=== PATIENT | male | born 1965 | race Caucasian/White ===

== ENCOUNTER 2023-09-21 18:27 | Inpatient (IN) | payer BC, SELFPAY ==
[2023-09-21] VITALS (31 sets, daily range): BP systolic 85–96; BP diastolic 65–79; PULSE 89–112; RESP 17–42; O2SAT 86–100
--- NOTE | ~2023-09-21 | XR_ITS ---
XR chest 1V portable DATE: 09/23/2023 08:22 INDICATION: Respiratory failure TECHNIQUE: Portable AP chest on 09/23/2023 at 0814 hours COMPARISON: 09/22/2023 portable AP chest at 1316 hours FINDINGS: There is persistent right upper lobe prominent consolidation and patchy bilateral lower kellie g infiltrates, with little interval change since 09/22/2023. There is interval mild pulmonary vascular prominence suggesting pulmonary vascular congestion. Heart size is not optimally evaluated on AP projection because of magnification. No pleural effusion or pneumothorax is evident. IMPRESSION: Persistent prominent right upper lobe consolidation and patchy bilateral lower lung zone infiltrates, relatively stable since 09/22/2023 Interval mild pulmonary vascular congestion since 09/22/2019 Reviewed, dictated and finalized at location [facility] IMPRESSION: Persistent prominent right upper lobe consolidation and patchy bila teral lower lung zone infiltrates, relatively stable since 09/22/2023 Interval mild pulmonary vascular congestion since 09/22/2019
--- NOTE | ~2023-09-21 | US_ITS ---
Renal-Bladder ultrasound Clinical History: Acute kidney injury Technique: Real-time sonographic imaging of the kidneys and urinary bladder was performed. Findings: The right kidney measures 13.6 cm in length and the left kidney measures 11.8 cm. There is no hydronephrosis or renal calculus identified. Renal cortical echogenicity is within normal limits. No renal mass lesion is identified. The urinary bladder is moderately distended at the time of this exam. No intraluminal echoes are iden tified. No abnormal wall thickening is seen. Impression: Unremarkable ultrasound of the kidneys and urinary bladder. Reviewed, dictated and finalized at location M. [facility] MACHINING SYSTEM MACHINIST Impression: Unremarkable ultrasound of the kidneys and urinary bladder.
--- NOTE | ~2023-09-21 | CT_ITS ---
EXAMINATION: CTA chest PE protocol DATE: 09/21/2023 18:54 INDICATION: Hypoxia. Tachycardia. Back pain. TECHNIQUE: Computed tomography angiography (CTA) of the chest was performed with 100 mL Omnipaque-350 intravenous contrast timed to evaluate the pulmonary arteries. Coronal maximum intensity projection 3D-reconstructions were created by the technologist. Automated exposure control and iterative reconst ruction technique were employed. The dose-length product was 654.45 mGy-cm. COMPARISON: None. FINDINGS: There are extensive airspace opacities with air bronchograms in right upper lobe. There are patchy airspace and groundglass opacities in the other lobes. No pleural effusion. The heart size is normal. No pericardial effusion. There is no pulmonary embolus. There is severe thoracic spondylosis . IMPRESSION: 1. Widespread pneumonia, worst in right upper lobe. 2. No pulmonary embolus. Reviewed, dictated and finalized at location E. ICAL SCIENCE LIAISON
--- NOTE | ~2023-09-21 | XR_ITS ---
XR chest 1V portable DATE: 09/22/2023 13:23 INDICATION: Pneumonia TECHNIQUE: Portable upright AP chest on 09/22/2023 at 1316 hours COMPARISON: 09/21/2023 CTA chest FINDINGS: There is prominent consolidation of the right upper lobe and patchy consolidating infiltrat es scattered in both lower lung zones as well. Normal heart size. No hilar or mediastinal enlargement is evident. No pleural effusion or pneumothora x is detected. IMPRESSION: Prominent right upper lobe consolidation and patchy consolidating infiltrates of both low er lungs Reviewed, dictated and finalized at location B. TING DETAILER IMPRESSION: Prominent right upper lobe consolidation and patchy consolidating i nfiltrates of both lower lungs
--- NOTE | 2023-09-21 18:32 | ECG_ITS ---
Measurements Intervals [place] Rate: 110 P: 35 MD: 159 QRS: 27 QRSD: 93 T: 39 QT: 274 QTc: 371 Interpretive Statements SINUS TACHYCARDIA ABNORMAL ECG NO PREVIOUS ECG AVAILABLE FOR COMPARISON Electronically Signed On 09-21-2023 19:34:11 ACTIVE DIRECTORY ADMINISTRATOR by Ned Fields D.O.
--- NOTE | 2023-09-21 18:33 | ED.CHESTPAIN ---
HPI - Chest Pain General Chief Complaint: Chest Pain Stated Complaint: STEMI, SOB, SYNCOPE Time Seen by Provider: 09/21/23 18:30 History of Present Illness HPI narrative: 58-year-old male presenting as a STEMI alert. Patient states that he has been passing out every time he tries to stand. States that he has been crawling around because of this. He has had pleuritic right-sided upper back pain today. Complains of some right calf pain. No leg swelling. Denies history of prior clots. He has also been feeling short of breath today. Further history is limited secondary to acuity of condition. Related Data Home Medications Medication Instructions Recorded Confirmed amitriptyline 100 mg tablet 100 mg PO HS 09/22/23 09/22/23 amlodipine 10 mg tablet 10 mg PO DAILY 09/22/23 09/22/23 polyethylene glycol 3350 17 gram 17 g PO HS 09/22/23 09/22/23 oral powder packet (Miralax) Allergies Allergy/AdvReac Type Severity Reaction Status Date / Time No Known Allergies Allergy Verified 09/21/23 19:05 Review of Systems Review of Systems: ROS unobtainable: Yes unobtainable due to medical condition [facility] Past Medical History Medical History Hypertension Family History Family History Father Parkinson disease Social History Social History (Updated 09/22/23 @ 15:26 by González Hernandez MD) Social History: Patient smoked a long time ago and has not smoked for last 10 years. He does ingest marijuana edibles. Takes alcohol occasionally denies any other drug usage at this time. Denies any history of IV drug use Smoking status: Never smoker Second hand tobacco smoke exposure: No Alcohol intake: never Substance use: never Do You Feel Safe in your Home?: Yes Lack of Transportation: No Lack of Food: Never True Current Housing: I Have Housing Concerned About Future Housing: No Difficulty Paying Gas/Electric Bills: No Difficulty Paying for Meds: No Currently Unemployed: No Education: Master's Degree or Higher Difficulty w/ Childcare or Family Care: No Spiritual care concerns: No Exam Narrative: GENERAL: Pale, uncomfortable appearing, pleasant cooperative HEAD: Normocephalic, atraumatic. EYES: PERRLA and EOMI. ENT: Mucous membranes moist. NECK: Supple. CHEST: Clear to auscultation. Tachypneic, hypoxic on room air HEART: Tachycardic, regular rhythm ABDOMEN: Soft, nontender, nondistended EXTREMITIES: No edema. SKIN: Warm, dry, no rash. NEURO: No focal deficits. Alert and oriented x3. PSYCH: Normal mood and affect. Course Vital Signs Vital signs: Vital Signs Pulse Rate 110 H 09/21/23 18:20 Respiratory Rate 30 H 09/21/23 18:20 Blood Pressure 85/72 L 09/21/23 18:20 Pulse Oximetry 86 L 09/21/23 18:20 Oxygen Delivery Room Air 09/21/23 18:20 Temperature 99.3 F 09/22/23 19:00 Pulse Rate 105 H 09/22/23 19:00 Respiratory Rate 27 H 09/22/23 19:00 Blood Pressure 107/82 09/22/23 19:00 Pulse Oximetry 100 09/22/23 19:00 Oxygen Delivery High Flow Nasal Cannula 09/22/23 17:00 Oxygen Flow Rate 15 09/22/23 17:00 Fraction of Inspired Oxygen 60 09/22/23 12:00 MDM - Chest Pain MDM Narrative Medical decision making narrative: 58-year-old male presenting with shortness of breath, recurrent syncope, pleuritic back pain. Patient was originally a STEMI alert. EKG here per my interpretation shows sinus tachycardia, slight elevations in V1, V2, no reciprocal changes. Reviewed the EKG with Cardiology as well as the pre-hospital EKG. Do not feel that this represents a STEMI at this time, code STEMI was canceled. Patient is tachycardic, tachypneic, hypotensive, hypoxic on room air. Patient taken straight to CT scan at to [facility] for PE. CTA chest shows no evidence of pulmonary embolus but he does have extensive multifocal pneumonia, worse on the right. Broad-spect
--- NOTE | 2023-09-21 18:38 | PC.NURSE ---
1816 Declared STEMI O/H 1818 [facility] Sent [address] Valdovinos notified 1834 STEMI Cancelled on [facility] was not notified for standby.
[2023-09-21 18:39] LABS: Hematocrit 35.6 % (42.0-52.0); Hemoglobin 11.8 g/dL (14.0-18.0); Mean Corpuscular HGB Conc 33.1 g/dl (32-36); Mean Corpuscular Hemoglobin 29.6 pg (26-34); Mean Corpuscular Volume 89.4 fl (80-100); Mean Platelet Volume 10.2 fl (7.4-10.4); Platelet Count Result 251 k/mm3 (150-375); Red Blood Count 3.98 M/mm3 (4.6-6.20); Red Cell Distribution Width 14.6 % (11.5-14.5); White Blood Count 13.5 K/mm3 (4.5-10.0)
[2023-09-21 18:41] LABS: Alveolar/Arterial O2 Gradient 623.3 mmHg; Carboxyhemoglobin 0.2 % THb (0-2.0); Fractional Inspired Oxygen 100 %; HCO3 ABG 20.9 mEq/l (22.0-26.0); Methemoglobin ABG 0.2 %THb (0-1.5); Oxygen Content ABG 15.8 %vol (16.0-22.0); Oxygen Saturation ABG 92.4 % (95.0-100.0); Oxyhemoglobin 89.9 % THb (90.0-100.0); PCO2 ABG 30.3 mmHg (35.0-45.0); PO2 ABG 59.4 mmHg (80.0-100.0); PO2 FiO2 Ratio Arterial Blood 0.59 %; Reduced Hemoglobin 9.7 %THb (0-5.0); Total Hemoglobin 12.5 g/dL (12.0-18.0); pH ABG 7.457 (7.350-7.450)
[2023-09-21 18:42] LABS: Site Drawn RIGHT BRACHIAL
[2023-09-21 18:43] LABS: Device NON-REBREATHER MASK
[2023-09-21 18:52] LABS: Alanine Aminotransferase 195 U/L (6-50); Albumin Level 3.5 g/dL (3.5-5.1); Alkaline Phosphatase 94 U/L (38-126); Anion Gap 14 mmol/L (8-16); Aspartate Amino Transferase 181 U/L (17-59); Bilirubin,Total 0.5 mg/dL (0.2-1.3); Blood Urea Nitrogen 36 mg/dL (9-20); Calcium 8.8 mg/dL (8.4-10.2); Carbon Dioxide 22 mmol/L (22-30); Chloride 96 mmol/L (98-107); Estimated CRCL calculation 20 ml/min; Estimated Glomerular Filt Rate 14; Glucose 118 mg/dL (65-110); Lipase 31 U/L (23-300); Magnesium 1.8 mg/dL (1.6-2.3); Potassium 4.5 mmol/L (3.4-5.0); Sodium 132 mmol/L (137-145)
[2023-09-21 18:54] LABS: INR 1.4; Partial Thromboplastin Time 34.2 SECONDS (22.3-36.8); Prothrombin Time 18.3 Seconds (11.1-14.7)
[2023-09-21] MEDS: SODIUM CHLORIDE 0.9% IV 1,000 ML 999 ML IV CONT ×4 (19:09→21:23)
[2023-09-21 19:12] LABS: Band Neutrophils Percent 48 % (0-6); Lymphocytes Absolute Manual 1.89 K/mm3 (1.1-4.5); Monocytes Absolute Manual 0.13 K/mm3 (0.1-0.90); Monocytes Percent Manual 1 % (3-9); Neutrophils Absolute Manual 11.47 K/mm3 (1.3-6.7); Neutrophils Percent Manual 37 % (46-73); Platelet Estimate Adequate (Adequate); Total Cells Counted 100
[2023-09-21 19:13] LABS: NT Pro B Type Natriuretic Pept 7910 pg/mL (19.9-100); Schistocytes None Seen (NORMAL); Troponin I 0.133 ng/mL (0.000-0.034)
[2023-09-21 19:16] LABS: Influenza A QL RT-PCR Negative (Negative); Influenza B QL RT-PCR Negative (Negative); RSV RNA, RT-PCR Negative (Negative); SARS-CoV-2 RNA PCR Negative (Negative)
[2023-09-21 19:40] LABS: Lactic Acid Reflex 5.2 mmol/L (0.7-2.0)
[2023-09-21] MEDS: PIPERACILLN/TAZ 3.375GM/NS50ML 3.375 GM/50 ML BAG IVPB (20:08)
--- NOTE | 2023-09-21 20:38 | PM.IMHP ---
H&P: HPI History of Present Illness Date/Time: 09/21/23 20:38 Chief Complaint: Syncope Narrative: this is a 58-year-old male with past medical history significant for hypertension. Patient presents to the emergency room due to generalized weakness, syncopal episode, chest pain. Initially arrived to the emergency room as a possible acute STEMI which was ruled out however patient with elevated troponins minimally. Preliminary workup was significant for CT of the chest PE protocol with lower pneumonia of the right upper lobe. Patient found to be hypoxic on room air placed on 10 L of oxygen. At the time of my visit patient was on breathing treatment unable to give any history due to respiratory distress. History was mainly obtained from who was at bedside. Patient had been in his usual state of health up until the day before. has had poor per orally intake, generalized malaise, generalized weakness and has been passing out upon standing up. preliminary workup was significant for a creatinine of 4.3, lactic acid of 5. Patient was started on broad-spectrum antibiotics and has been admitted to IMU. EXAMINATION: CTA chest PE protocol DATE: 09/21/2023 18:54 INDICATION: Hypoxia. Tachycardia. Back pain. TECHNIQUE: Computed tomography angiography (CTA) of the chest was performed with 100 mL Omnipaque-350 intravenous contrast timed to evaluate the pulmonary arteries. Coronal maximum intensity projection 3D-reconstructions were created by the technologist. Automated exposure control and iterative reconstruction technique were employed. The dose-length product was 654.45 mGy-cm. COMPARISON: None. FINDINGS: There are extensive airspace opacities with air bronchograms in right upper lobe. There are patchy airspace and groundglass opacities in the other lobes. No pleural effusion. The heart size is normal. No pericardial effusion. There is no pulmonary embolus. There is severe thoracic spondylosis. IMPRESSION: 1. Widespread pneumonia, worst in right upper lobe. 2. No pulmonary embolus. Review of Systems Review of Systems: ROS unobtainable: Yes unobtainable due to medical condition ( Respiratory distress) [facility] Family History Family History (Updated 09/22/23 @ 01:48 by Sherman Burgos RN) Father Parkinson disease Social History Social History Smoking status: Never smoker Second hand tobacco smoke exposure: No Alcohol intake: never Substance use: never Do You Feel Safe in your Home?: Yes Lack of Transportation: No Lack of Food: Never True Current Housing: I Have Housing Concerned About Future Housing: No Difficulty Paying Gas/Electric Bills: No Difficulty Paying for Meds: No Currently Unemployed: No Education: Master's Degree or Higher Difficulty w/ Childcare or Family Care: No Spiritual care concerns: No Meds Home Medications and Allergies Home Medications Medication Instructions Recorded Confirmed Type amitriptyline 100 mg tablet 100 mg PO HS 09/22/23 09/22/23 History amlodipine 10 mg tablet 10 mg PO DAILY 09/22/23 09/22/23 History polyethylene glycol 3350 17 gram 17 g PO HS 09/22/23 09/22/23 History oral powder packet (Miralax) Allergies Allergy/AdvReac Type Severity Reaction Status Date / Time No Known Allergies Allergy Verified 09/21/23 19:05 Vital Signs Vital Signs - 24 hr 09/21/23 18:20 09/21/23 18:30 09/21/23 18:30 Pulse Rate 110 H Respiratory Rate 30 H Blood Pressure 85/72 L Pulse Oximetry 86 L 94 94 Oxygen Delivery Room Air Non-Rebreather Mask Oxygen Flow Rate 15 Exam Narrative: laying in a stretcher Const: General: cooperative, comfortable, no acute distress, well developed, alert, awake, in distress respiratory ( on 10 L by nasal cannula), ill appearing and average body habitus Nutritional Appearance: average body habitus Orientation/consciousness: patien
[2023-09-21] MEDS: VANCOMYCIN 1,500 MG/NS 500 ML 1,500 MG/500 ML BAG 250 MG IVPB (20:45)
[2023-09-21] MEDS: ALBUTEROL SULFATE NEB 2.5 MG/3 ML INH 10 MG INHALATION (21:12)
[2023-09-21] MEDS: IPRATROPIUM BR 0.02% INH SOLN 0.5 MG/2.5 ML VIAL INHALATION (21:13)
[2023-09-21 21:26] LABS: MRSA (PCR) NOT DETECTED (NOT DETECTE)
[2023-09-21 21:47] LABS: Alveolar/Arterial O2 Gradient 625.2 mmHg; Base Excess ABG -5.6 mEq/l (+/-2.0); Fractional Inspired Oxygen 100 %; Oxygen Content ABG 15.1 %vol (16.0-22.0); Oxygen Saturation ABG 90.7 % (95.0-100.0); Oxyhemoglobin 88.4 % THb (90.0-100.0); PCO2 ABG 29.7 mmHg (35.0-45.0); PO2 ABG 58.1 mmHg (80.0-100.0); PO2 FiO2 Ratio Arterial Blood 0.58 %; Total Hemoglobin 12.1 g/dL (12.0-18.0); pH ABG 7.401 (7.350-7.450)
[2023-09-21 21:51] LABS: Device NON-REBREATHER MASK; Modified Allen's Test Pass; Site Drawn LEFT RADIAL
--- NOTE | 2023-09-21 22:11 | PC.NURSE ---
Respiratory at bedside and this RN spoke to them about bipap. She states she was not aware of the order for bipap. This RN explained that there was an order and he would need bipap. Respiratory placing patient on bipap at this time
[2023-09-21 22:20] LABS: Reflex Lactic Acid Yes or No Add Lactic
--- NOTE | 2023-09-21 22:21 | ECG_ITS ---
Measurements Intervals [place] Rate: 110 P: 56 FL: 157 QRS: 19 QRSD: 90 T: 49 QT: 285 QTc: 386 Interpretive Statements SINUS TACHYCARDIA BASELINE WANDER- II, III, AVR, AVL, AVF, V5-V6 ABNORMAL ECG COMPARED TO ECG 09/21/2023 18:30:38 NO SIGNIFICANT CHANGES Electronically Signed On 09-22-2023 9:51:20 GEOLOGIST by Ned Fields D.O.
[2023-09-21 23:23] LABS: Lactic Acid 5.6 mmol/L (0.7-2.0)
[2023-09-21 23:24] LABS: Troponin I 0.262 ng/mL (0.000-0.034)
[2023-09-22] VITALS (38 sets, daily range): BP systolic 90–117; BP diastolic 58–85; PULSE 103–110; RESP 13–34; TEMP 36.1–38.1; O2SAT 93–100; BMI 29.4
--- NOTE | 2023-09-22 | ECHO_ITS ---
Patient Info Name: Baldemar Uriostegui Age: 58 years : 1965 Gender: Male Ht: 74 in Wt: 229 lbs BSA: 2.35 m2 HR: 106 bpm BP: 94 / 61 mmHg Heart Rhythm: Sinus Rhythm Technical Quality: Fair Exam Date: 09/22/2023 9:56 AM Exam Location: Echo Lab Patient Status: Inpatient Admit Date: 09/22/2023 Staff Ordering Physician: Ame Mac MD Attending Provider: Ame Mac MD Referring Physician: Estefania ANG; Exam Type: CA echo dop color flow w con Study Info Indications I50.21 - Acute systolic (congestive) heart failure Complete two-dimensional, color flow and Doppler transthoracic echocardiogram is performed with contrast to opacify the left ventricle and to improve the deliniation of the left ventricle endocardial borders. Contrast/Agitated Saline Contrast/Ag. Saline: Definity Amount: 2.00 ml Existing IV Access: Yes IV Access Condition: patent with no signs of infiltration Summary 1. Left ventricular chamber dimension is normal. 2. Left ventricular systolic function is mildly reduced, estimated at 40-45%. 3. There is no increased left ventricular wall thickness. 4. The left ventricular diastolic function is normal. 5. There is mild mitral valve regurgitation. Left Ventricle Left ventricular chamber dimension is normal. Left ventricular systolic function is mildly reduced, estimated at 40-45%. There is no increased left ventricular wall thickness. The left ventricular diastolic function is normal. Right Ventricle Right ventricular chamber dimension is normal. Right ventricular systolic function is normal. Left Atria Left atrial chamber dimension is normal. Right Atria Right atrial chamber dimension is normal. Atrial Septum Intact interatrial septum visualized by color flow imaging. Aortic Valve There is mild aortic valve sclerosis. There is no aortic valve stenosis. There is trace aortic valve regurgitation. Pulmonic Valve The pulmonic valve is not well visualized. Mitral Valve The mitral valve has normal leaflets. There is no mitral valve stenosis. There is mild mitral valve regurgitation. Tricuspid Valve The tricuspid valve leaflets are normal. There is no significant tricuspid valve stenosis. There is trace tricuspid valve regurgitation. Pericardium/Pleural The pericardium appears normal. There is no pericardial effusion. Inferior Vena Cava Dilated inferior vena cava with <50% collapse upon inspiration consistent with elevated right atrial pressure, 10 mmHg. Aorta The aortic root size at the sinus of Valsalva is normal. Left Ventricular Outflow Tract Name Value Normal LVOT 2D LVOT Diameter 2.07 cm LVOT Doppler LVOT Peak Gradient 3 mmHg LVOT Mean Gradient 2 mmHg LVOT VTI 17.31 cm LVOT VTI/AV VTI Ratio 1.03 LVOT Stroke Volume 58.24 ml LVOT CO 6.20 l/min LVOT CI 2.64 L/min/m2 Mitral Valve Name Va
[2023-09-22] MEDS: SODIUM CHLORIDE 0.9% IV 1,000 ML 999 ML IV CONT (01:12)
--- NOTE | 2023-09-22 01:22 | ECG_ITS ---
Measurements Intervals [place] Rate: 107 P: 62 [place]: 154 QRS: 32 QRSD: 98 T: 38 QT: 298 QTc: 399 Interpretive Statements SINUS TACHYCARDIA MARKED ST ELEVATION, CONSIDER ANTEROSEPTAL INJURY ABNORMAL ECG COMPARED TO ECG 09/21/2023 22:21:42 ST ELEVATION NOW PRESENT Electronically Signed On 09-22-2023 6:53:16 WOOL SHEARING SUPERVISOR by Ned Fields D.O.
--- NOTE | 2023-09-22 01:58 | ADMGEN ---
This patient, Baldemar Uriostegui, was admitted to IMU Room 202-. Patient/family oriented to hospital policies and general routines including ID bracelet, bed and alarms, visiting hours, pain management, procedures, bathroom and other care routines, personal items, smoking policy, room service/diet, and visiting hours. Information on how to activate the Rapid Response Team has been discussed. Patient/Family are encouraged to report perceived risks to care and to ask questions if they do not understand what they are told or what they should do.
[2023-09-22 02:47] LABS: Estimated CRCL calculation 21 ml/min; Estimated Glomerular Filt Rate 15
[2023-09-22 03:05] LABS: Troponin I 0.543 ng/mL (0.000-0.034)
[2023-09-22] MEDS: HEPARIN SOD/D5W 100 UNITS/ML 25,000 UNITS/250 ML BAG 10 UNITS IV CONT (03:52)
[2023-09-22] MEDS: HEPARIN SODIUM 5,000 UNITS/ML VIAL 4000 UNITS IV PUSH (03:52)
[2023-09-22 04:42] LABS: Anion Gap 12 mmol/L (8-16); Blood Urea Nitrogen 39 mg/dL (9-20); Calcium 7.5 mg/dL (8.4-10.2); Carbon Dioxide 16 mmol/L (22-30); Chloride 103 mmol/L (98-107); Estimated CRCL calculation 21 ml/min; Estimated Glomerular Filt Rate 15; Glucose 124 mg/dL (65-110); Magnesium 1.7 mg/dL (1.6-2.3); Phosphorus 4.3 mg/dL (2.5-4.5); Potassium 4.8 mmol/L (3.4-5.0); Sodium 131 mmol/L (137-145)
[2023-09-22 05:28] LABS: INR 1.5; Prothrombin Time 19.1 Seconds (11.1-14.7)
[2023-09-22 05:29] LABS: Partial Thromboplastin Time 38.4 SECONDS (22.3-36.8)
[2023-09-22 08:49] LABS: Hematocrit 32.7 % (42.0-52.0); Hemoglobin 10.5 g/dL (14.0-18.0); Mean Corpuscular HGB Conc 32.1 g/dl (32-36); Mean Corpuscular Hemoglobin 29.5 pg (26-34); Mean Corpuscular Volume 91.9 fl (80-100); Platelet Count Result 213 k/mm3 (150-375); Red Blood Count 3.56 M/mm3 (4.6-6.20); Red Cell Distribution Width 15.2 % (11.5-14.5); White Blood Count 11.9 K/mm3 (4.5-10.0)
[2023-09-22 09:22] LABS: Band Neutrophils Percent 57 % (0-6); Lymphocytes Absolute Manual 0.47 K/mm3 (1.1-4.5); Metamyelocytes Percent 11 %; Monocytes Absolute Manual 0.71 K/mm3 (0.1-0.90); Monocytes Percent Manual 6 % (3-9); Neutrophils Percent Manual 22 % (46-73); Platelet Estimate Adequate (Adequate); Total Cells Counted 100
[2023-09-22 09:23] LABS: Anisocytosis 1+ (NORMAL)
[2023-09-22 09:24] LABS: Hypochromasia 1+ (NORMAL); Schistocytes Rare (NORMAL)
--- NOTE | 2023-09-22 09:34 | ECG_ITS ---
Measurements Intervals [place] Rate: 105 P: 40 DC: 132 QRS: 17 QRSD: 102 T: 28 QT: 310 QTc: 411 Interpretive Statements SINUS TACHYCARDIA ST ELEVATION IN DIFFUSE LEADS- PROBABLY EARLY REPOLARIZATION BORDERLINE ECG COMPARED TO ECG 09/22/2023 02:11:31 NO SIGNIFICANT CHANGES Electronically Signed On 09-22-2023 9:52:53 ACADEMIC SUPPORT ASSISTANT by Ned Fields D.O.
--- NOTE | 2023-09-22 09:38 | PM.CNCAR ---
Assessment and Plan Assessment and plan (1) Acute hypoxic respiratory failure: Code(s): J96.01 - Acute respiratory failure with hypoxia Status: Acute Assessment and Plan: Probably secondary to viral/bacterial syndrome resulting in pneumonia and multisystem organ failure. Recommend pulmonology consultation (2) Acute kidney failure: Code(s): N17.9 - Acute kidney failure, unspecified Status: Acute Assessment and Plan: Severe. Recommend Nephrology consultation (3) Lactic acidosis: Code(s): E87.20 - Acidosis, unspecified Status: Acute Assessment and Plan: Lactic acid has been repeated (4) Elevated troponin: Code(s): R79.89 - Other specified abnormal findings of blood chemistry Status: Acute Assessment and Plan: Elevated troponins and abnormal ECG are noted. If the patient was having a large anterolateral myocardial infarction, his troponins would be significantly more elevated. However his last troponin was drawn approximately 8 hours ago. Will repeat a stat troponin now as well as a stat echocardiogram will be ordered and reviewed. There is certainly a possibility the patient has a poor ejection fraction in the setting of sepsis and organ failure also. He has been started on heparin this will be continued. Aspirin 81 mg will also be given will check a lipid panel and depending on the results of the stat echocardiogram further determination as to proceeding to cardiac catheterization will then be determined. Obviously given his acute renal failure, IV dye exposure may be further detrimental to his renal function but obviously if needed, catheterization will be performed. (5) Lobar pneumonia: Code(s): J18.1 - Lobar pneumonia, unspecified organism Status: Acute Assessment and Plan: On antibiotics. Continue supportive care (6) Hypertension: Code(s): I10 - Essential (primary) hypertension Status: Acute Assessment and Plan: He is actually hypotensive at present. Will discontinue his amlodipine for now History of Present Illness History of Present Illness Consult date/time: 09/22/23 09:38 Requesting physician: Ame Mac MD Consult reason: Other (ST elevation, ECG) Reason For Visit: Pneumonia,Sepsis Narrative: Reason for consultation: ST elevation abnormal ECG Date of service 09/22/2023 Requesting provider: Dr. Mac History: Patient is a 58-year-old male who has hypertension and no other cardiac history who presented to the hospital because of weakness syncope/presyncope. He at no point time endorses chest pain. History is obtained from talking to the patient as well as talking to the patient's . He states that he started feel poorly on Monday which is 3 days ago. Started feel like he was having some allergies. The next day on Monday he felt worse and felt as if he was coming down with the flu or COVID. Later that night he went up to go to the bathroom and felt weak had shaking as well as chilled. His face felt hot. He was short of breath and his states that he was diaphoretic. He was lethargic and weak to the point that he had numerous syncopal or presyncopal episodes where he felt weak and had it sit down or possibly even briefly passed out. He was dizzy. The episodes were brief and he can give himself back up but symptoms would occur again. As the day progressed yesterday it was decided that he would go to urgent care. While in urgent care he was noted to be hypoxic and hypotensive. He had blurry vision also while in urgent care. Ambulance was called and an EKG was performed in the ambulance which was concerning for septal myocardial infarction with ST elevations in V1 V2. Dr. Valdovinos was notified and reviewed ECGs as well as follow-up EKGs once the patient arrived in the ER and at that point it was decided that he did not feel that the patient was having a massive anterior myocardial infarc
[2023-09-22] MEDS: PERFLUTREN LIPID MICROSPHERES 1.5 ML VIAL DILUTED TO 10 ML TOTAL VOLUME IV PUSH (10:33)
[2023-09-22 10:47] LABS: Lactic Acid Reflex 4.9 mmol/L (0.7-2.0)
[2023-09-22] MEDS: SODIUM CHLORIDE 0.9% IV 1,000 ML 100 ML IV CONT (10:52)
[2023-09-22 11:01] LABS: Partial Thromboplastin Time 82.2 SECONDS (22.3-36.8)
--- NOTE | 2023-09-22 11:25 | PC.NURSE ---
Dr. Matthews spoke with patient about current status, labs, and EKG. Trop 20.5. Patient at this time is refusing to have a cardiac cath done.
[2023-09-22] MEDS: CEFEPIME 1 GM/NS 50 ML 1 GM/50 ML BAG IVPB ×2 (12:22→20:52)
[2023-09-22] MEDS: ASPIRIN 81 MG ENTERIC TABLET PO (12:23)
[2023-09-22 12:44] LABS: Alanine Aminotransferase 127 U/L (6-50); Albumin Level 2.8 g/dL (3.5-5.1); Alkaline Phosphatase 89 U/L (38-126); Anion Gap 12 mmol/L (8-16); Aspartate Amino Transferase 139 U/L (17-59); Bilirubin,Total 0.4 mg/dL (0.2-1.3); Blood Urea Nitrogen 44 mg/dL (9-20); Calcium 7.8 mg/dL (8.4-10.2); Carbon Dioxide 17 mmol/L (22-30); Chloride 103 mmol/L (98-107); Estimated CRCL calculation 20 ml/min; Estimated Glomerular Filt Rate 14; Glucose 117 mg/dL (65-110); Potassium 5.1 mmol/L (3.4-5.0); Sodium 132 mmol/L (137-145)
[2023-09-22 12:53] LABS: Reflex Lactic Acid Yes or No Add Lactic
--- NOTE | 2023-09-22 13:22 | P.PNIM_ITS ---
Progress Note: A&P Assessment and Plan (1) Septic shock: Code(s): A41.9 - Sepsis, unspecified organism; R65.21 - Severe sepsis with septic shock Status: Acute Assessment and Plan: Patient presented to the ED with leukocytosis, tachypnea, tachycardia, hypotension, lactic acidosis, MARY, Hypoxia and heart failure. * Appears to be shock due to pneumonia. * Hypoperfusion of the kidneys causing an MARY. * Trend lactic acid levels. * IV fluids at 50 per Nephrology recommendations. * Monitor blood pressure. * Continue oxygen supplementation (2) Lobar pneumonia: Code(s): J18.1 - Lobar pneumonia, unspecified organism Status: Acute Assessment and Plan: CTA of the chest revealing widespread pneumonia, worse in the right upper lobe, no pulmonary embolism present. * Patient started on vancomycin, cefepime and doxycycline. * Sputum culture ordered. * Blood cultures pending. * Patient was put on BiPAP due to hypoxia on non-rebreather. Wean to maintain O2 saturation greater than 92%. * Flu COVID and RSV negative (3) Acute hypoxic respiratory failure: Code(s): J96.01 - Acute respiratory failure with hypoxia Status: Acute Assessment and Plan: Hypoxia likely secondary to pneumonia * Patient was put on BiPAP due to hypoxia on non-rebreather. weaned to maintain O2 saturation greater than 92%. * ABG revealing metabolic alkalosis with respiratory compensation (4) Elevated troponin: Code(s): R79.89 - Other specified abnormal findings of blood chemistry Status: Acute Assessment and Plan: On presentation to the ED patient experience weakness, syncopal episode and chest pain. * Troponin: 0.13, 0.26, 0.54, 20.5 * Cardiology consulted. * Will proceed with cardiac catheterization this afternoon. * Risk of worsening renal failure discussed with the patient. (5) Acute kidney failure: Code(s): N17.9 - Acute kidney failure, unspecified Status: Acute Assessment and Plan: Patient presents to ED with a BUN and creatinine of 36/4.3, lactic acid of 5.2 reflux to 5.6. * Patient was given 5 L of fluids in the ED with little improvement of kidney function. Improvement of 39/4.2. * Renal ultrasound ordered and revealed normal kidneys. * Nephrology consulted and they believe likely due to hypoperfusion of the kidneys due to acute heart failure/sepsis * Nephrology recommending fluids at 50mls/hr * UA ordered * Patient may need possible dialysis. Will reassess after patient returns from high density press laborer. (6) Syncope and collapse: Code(s): R55 - Syncope and collapse Status: Acute Assessment and Plan: Differential: vasovagal, NV, hypotension, sepsis * Patient was found to be hypotensive on arrival and was given IV boluses * Echocardiogram with EF of 40-45% and normal diastolic function (7) Lactic acidosis: Code(s): E87.20 - Acidosis, unspecified Status: Acute Assessment and Plan: Lactic acid: 5.2, 5.6, 4.9 * Continue to trend (8) Congestive heart failure: Code(s): I50.9 - Heart failure, unspecified Status: Acute Assessment and Plan: Echocardiogram revealing EF of 40-45%. * BNP of 7000. * Cardiology consulted. * Heart failure likely due to acute cardiac event Subjective Date/time seen: 09/22/23 13:22 Interval history: Patient states that for the past
--- NOTE | 2023-09-22 13:22 | PM.IMPN ---
Progress Note: A&P Assessment and Plan (1) Septic shock: Code(s): A41.9 - Sepsis, unspecified organism; R65.21 - Severe sepsis with septic shock Status: Acute Assessment and Plan: Patient presented to the ED with leukocytosis, tachypnea, tachycardia, hypotension, lactic acidosis, MARY, Hypoxia and heart failure. Appears to be shock due to pneumonia. Hypoperfusion of the kidneys causing an MARY. Trend lactic acid levels. IV fluids at 50 per Nephrology recommendations. Monitor blood pressure. Continue oxygen supplementation (2) Lobar pneumonia: Code(s): J18.1 - Lobar pneumonia, unspecified organism Status: Acute Assessment and Plan: CTA of the chest revealing widespread pneumonia, worse in the right upper lobe, no pulmonary embolism present. Patient started on vancomycin, cefepime and doxycycline. Sputum culture ordered. Blood cultures pending. Patient was put on BiPAP due to hypoxia on non-rebreather. Wean to maintain O2 saturation greater than 92%. Flu COVID and RSV negative (3) Acute hypoxic respiratory failure: Code(s): J96.01 - Acute respiratory failure with hypoxia Status: Acute Assessment and Plan: Hypoxia likely secondary to pneumonia Patient was put on BiPAP due to hypoxia on non-rebreather. weaned to maintain O2 saturation greater than 92%. ABG revealing metabolic alkalosis with respiratory compensation (4) Elevated troponin: Code(s): R79.89 - Other specified abnormal findings of blood chemistry Status: Acute Assessment and Plan: On presentation to the ED patient experience weakness, syncopal episode and chest pain. Troponin: 0.13, 0.26, 0.54, 20.5 Cardiology consulted. Will proceed with cardiac catheterization this afternoon. Risk of worsening renal failure discussed with the patient. (5) Acute kidney failure: Code(s): N17.9 - Acute kidney failure, unspecified Status: Acute Assessment and Plan: Patient presents to ED with a BUN and creatinine of 36/4.3, lactic acid of 5.2 reflux to 5.6. Patient was given 5 L of fluids in the ED with little improvement of kidney function. Improvement of 39/4.2. Renal ultrasound ordered and revealed normal kidneys. Nephrology consulted and they believe likely due to hypoperfusion of the kidneys due to acute heart failure/sepsis Nephrology recommending fluids at 50mls/hr UA ordered Patient may need possible dialysis. 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 (6) Syncope and collapse: Code(s): R55 - Syncope and collapse Status: Acute Assessment and Plan: Differential: vasovagal, TN, hypotension, sepsis Patient was found to be hypotensive on arrival and was given IV boluses Echocardiogram with EF of 40-45% and normal diastolic function (7) Lactic acidosis: Code(s): E87.20 - Acidosis, unspecified Status: Acute Assessment and Plan: Lactic acid: 5.2, 5.6, 4.9 Continue to trend (8) Congestive heart failure: Code(s): I50.9 - Heart failure, unspecified Status: Acute Assessment and Plan: Echocardiogram revealing EF of 40-45%. BNP of 7000. Cardiology consulted. Heart failure likely due to acute cardiac event Subjective Date/time seen: 09/22/23 13:22 Interval history: Patient states that for the past couple days he has been feeling progressively more weak with an associated cough. He has not had any known sick contacts. patient states that he was staying hydrated did note decreased urine output over the past day or 2. he also stated that when he would go to stand walk he would feel extremely lightheaded and felt as if he was going to pass out. He felt that he also ran a fever although never took a temperature. He did take some Motrin and NyQuil at home. When going to the urgent care to get checked over they sent
--- NOTE | 2023-09-22 13:45 | WPDMODSED ---
Moderate Sedation Note-Pt Data Patient Data Diagnosis: NSTEMI Present Complaint: NSTEMI Procedure to be performed/Plan: Coronary angiography, left heart cath, +/- PCI Allergies Allergy/AdvReac Type Severity Reaction Status Date / Time No Known Allergies Allergy Verified 09/21/23 19:05 Home Medications Medication Instructions Recorded Confirmed Type amitriptyline 100 mg tablet 100 mg PO HS 09/22/23 09/22/23 History amlodipine 10 mg tablet 10 mg PO DAILY 09/22/23 09/22/23 History polyethylene glycol 3350 17 gram 17 g PO HS 09/22/23 09/22/23 History oral powder packet (Miralax) Current Medications: Active Medications Amitriptyline HCl (Amitriptyline Hcl 25 Mg Tablet) 100 mg PO [facility] Aspirin (Aspirin 81 Mg Enteric Tablet) 81 mg PO QAM [facility] Last Admin: 09/22/23 12:23 Dose: 81 mg Heparin Sodium (Porcine) (Heparin Sodium 5,000 Units/Ml Vial) 4,000 units IV PUSH PRN PRN PRN Reason: aPTT less than 55 seconds Heparin Sodium (Porcine) (Heparin Sodium 5,000 Units/Ml Vial) 3,500 units IV PUSH PRN PRN PRN Reason: aPTT 55 - 70 seconds Heparin Sodium/Dextrose (Heparin Sodium/D5w 100 Units/Ml) 25,000 units in 250 mls @ 12 mls/hr IV CONT .[id number] [facility]; Protocol Last Titration: 09/22/23 09:40 Dose: 1,200 units/hr, 12 mls/hr Sodium Chloride (Normal Saline Iv) 1,000 mls @ 50 mls/hr IV CONT .Q20H [facility] Last Admin: 09/22/23 10:52 Dose: 100 mls/hr Cefepime HCl (Maxipime 1 Gm/Ns 50 Ml) 1 gm in 50 mls @ 100 mls/hr IVPB Q12H [facility] Last Admin: 09/22/23 12:22 Dose: 100 mls/hr Doxycycline Hyclate (Vibramycin 100 Mg/Ns 100 Ml) 100 mg in 100 mls @ 100 mls/hr IVPB BID@1200,0000 [facility] Polyethylene Glycol (Polyethylene Glycol 3350 17 Gm Powd.Pack) 17 gm PO [facility] Vancomycin HCl (Vancomycin For Acute Kidney Injury) 1 each IVPB PRN PRN PRN Reason: Vancomycin Protocol Sedation/Anesthesia: No previous sedation/anesthesia problems (including family history). [facility] Past Medical History Medical History Hypertension Family History Family History Father Parkinson disease Social History Social History Smoking status: Never smoker Second hand tobacco smoke exposure: No Alcohol intake: never Substance use: never Do You Feel Safe in your Home?: Yes Lack of Transportation: No Lack of Food: Never True Current Housing: I Have Housing Concerned About Future Housing: No Difficulty Paying Gas/Electric Bills: No Difficulty Paying for Meds: No Currently Unemployed: No Education: Master's Degree or Higher Difficulty w/ Childcare or Family Care: No Spiritual care concerns: No Mod Sed Physical Exam Physical Exam Pre Procedural Exam: Normal: Appearance, Heart Rate, Heart Rhythm, Neuro Exam, Extremities and Skin and Variation: Lungs (Decreased breath sounds) Hours since solid foods: 12 Hours since liquid intake: 8 Mallampati Classification: class III Internal Medicine - PN: Obj Da Vital Signs Vital Signs: Vital Signs - 24 hr 09/21/23 18:20 09/21/23 18:30 09/21/23 18:30 Temperature Pulse Rate 110 H Respiratory Rate 30 H Blood Pressure 85/72 L Pulse Oximetry 86 L 94 94 Oxygen Delivery Room Air Non-Rebreather Mask Oxygen Flow Rate 15 09/21/23 19:31 09/21/23 20:01 09/21/23 20:18 Temperature Pulse Rate 103 H 105 H 104 H Respiratory Rate 28 H 41 H 34 H Blood Pressure 90/69 L 95/68 L 91/65 L Pulse Oximetry 93 92 Oxygen Delivery Oxygen Flow Rate 09/21/23 20:31 09/21/23 20:46 09/21/23 21:40 Temperature Pulse Rate 104 H 105 H 89 Respiratory Rate 42 H 41 H 28 H Blood Pressure 93/74 L 91/77 L Pulse Oximetry 90 90 Oxygen Delivery Oxygen Flow Rate 09/21/23 22:19 09/21/23 22:23 09/21/23 21:17 Temperature Pulse Rate 110 H 110 H 110 H Respiratory Rate 20 22 H Blood Pressure Pulse
--- NOTE | 2023-09-22 13:46 | WPDCARDPROC ---
Cardiac Cath Procedure Note Date of procedure:: 09/22/23 Performing physician:: CATHETERIZATION LABORATORY REPORT Procedure Date: 09/22/2023 Robotics Mechanic: Harris Lobo M.D., [facility]? Referring Physician: Jamey Matthews M.D. ? Anesthesia: Versed and Fentanyl were ordered and given in my presence at 14:00, procedure ended at 14:22. Supervision of nurse monitored moderate sedation with Versed and Fentanyl was provided for 22 minutes. Total of Versed 0.5mg and Fentanyl 25mcg were administered by the Drum Cleaner RN Nora Key. Pre-op Diagnosis: NSTEMI Post-op Diagnosis: 1. No obstructive coronary arteries 2. Elevated left ventricular end-diastolic pressure of 24mmHg Procedure(s): 1. Moderate sedation 2. Ultrasound-guided access of the right common femoral artery 3. Coronary angiography 4. Left heart cath 5. Angioseal closure of the right common femoral artery Access Site: Right common femoral artery (Radial access was not used as we are out of TR bands) Brief History and Clinical Indications: Patient is a 58 year old male who is referred for [facility] for NSTEMI. All risks, benefits and alternatives to left heart catheterization with or without percutaneous coronary intervention was discussed at length with the patient. Risk of complications including but not limited to bleeding, infection, arrhythmia, stroke, worsening kidney function, blood loss, groin hematoma, limb loss, emergency coronary artery bypass grafting, and even were discussed with the patient and all questions were answered. The patient understood and wished to proceed. Time out called, patient name, date of , medical record number, allergies, procedure performed, identify Robotics Mechanic, patient and staff member concurred with accurate data, procedure carried on. Findings: LEFT HEART CATHETERIZATION FINDINGS: 1. Left main: The left main coronary artery is widely patent without any significant obstructive disease. 2. Left anterior descending: The LAD and the diagonal branches have mild luminal irregularities without any significant obstructive angiographic disease. 3. Left circumflex: The left circumflex artery and the main marginal branches have mild luminal irregularities without any significant obstructive angiographic disease. 4. Right coronary artery: The RCA has mild luminal irregularities without any significant obstructive angiographic disease. The RCA is the dominant vessel. 5. Left ventricle: A. End-diastolic pressure 24mmHg. B. LV gram deferred. C. No significant gradient across aortic valve on catheter pullback. Description of Procedure: Informed consent signed and placed in the chart. Patient transferred to experimental machining lab manager room. Prepped and draped in usual sterile fashion. 2% lidocaine in right groin area. Micropuncture needle used to access right common femoral artery with Seldinger technique under fluoroscopic and ultrasound guidance. J wire advanced, micropuncture cannula placed. Right iliofemoral angiogram performed, access confirmed and micropuncture cannula exchanged for 5-FR sheath. 5F FL 4 diagnostic catheter engaged Left Main Coronary Artery. 5F FR 4 diagnostic catheter engaged Right Coronary Artery. Multiple orthogonal angiogram obtained and reviewed 5F Pigtail diagnostic catheter crossed aortic valve to obtain LVEDP, LV angiogram deferred. Hemostasis was achieved by 6F Angioseal. Post Operative Condition: Stable No significant blood loss Disposition: Floor Plan: The patient will be monitored in the recovery area. The above findings were discussed with the referring physician. Continue aggressive medical therapy and risk factor modification. ? Harris Lobo M.D. Interventional Cardiology
--- NOTE | 2023-09-22 15:21 | WPDCNINT ---
Assessment and Plan Assessment and plan (1) Septic shock: Code(s): A41.9 - Sepsis, unspecified organism; R65.21 - Severe sepsis with septic shock Status: Acute Assessment and Plan: Septic shock secondary to community-acquired pneumonia and Gram-positive bacteremia Patient has received adequate amount of IV fluid and appears to have now developed volume overload I will hold further IV fluids Patient earlier was hypotensive but on my review in the catheterization lab patient's blood pressure was adequate with map above 70 Patient will be transferred to ICU post cardiac catheterization and monitored for his hemodynamics. If patient has a drop in blood pressure he will need vasopressors to maintain his mean arterial pressure which can be done in the ICU His influenza RSV and COVID PCR were negative His nasal MRSA screen was negative His blood cultures are growing Gram-positive cocci and identification is haas He is currently on doxycycline vancomycin and cefepime which will be continued (2) Acute kidney failure: Code(s): N17.9 - Acute kidney failure, unspecified Status: Acute Assessment and Plan: Patient presented with creatinine of 4.3 most likely secondary to hypotension and hypovolemia and sepsis which may have progressed to ATN Renal ultrasound - Unremarkable ultrasound of the kidneys and urinary bladder. Check CK level Nephrology consulted Hold further IV fluids as patient appears to have volume overload Monitor urine output electrolytes and creatinine May need GRAIN UNLOADER MACHINE if renal function continues to deteriorate and does not improved (3) Acute hypoxic respiratory failure: Code(s): J96.01 - Acute respiratory failure with hypoxia Status: Acute Assessment and Plan: Patient developed acute hypoxic respiratory failure which is likely secondary to combination of pneumonia and volume overload He is currently on 5 L nasal cannula and appears comfortable with no respiratory distress Hold further IV fluids and monitor (4) NSTEMI (non-ST elevated myocardial infarction): Code(s): I21.4 - Non-ST elevation (NSTEMI) myocardial infarction Status: Acute Assessment and Plan: Patient had elevated troponin and underwent cardiac catheterization which did not show any obstructive coronary disease This appears to be likely secondary to type 2 non STEMI from demand ischemia due to sepsis (5) Congestive heart failure: Code(s): I50.9 - Heart failure, unspecified Status: Acute Assessment and Plan: Patient has elevated BNP and has developed volume overload secondary to IV fluids and renal failure Echocardiogram showed Summary ? 1. Left ventricular chamber dimension is normal. ? 2. Left ventricular systolic function is mildly reduced, estimated at 40-45%. ? 3. There is no increased left ventricular wall thickness. ? 4. The left ventricular diastolic function is normal. ? 5. There is mild mitral valve regurgitation. He may need a SAM (6) Community acquired pneumonia: Code(s): J18.9 - Pneumonia, unspecified organism Status: Acute Assessment and Plan: See above Plan DVT prophylaxis -he received heparin today will start Lovenox from tomorrow Stress ulcer prophylaxis - NA Nutrition -diet ordered Code Status - Full Code Potential transfer to tertiary facility was discussed with patient and his family by headend technician and internal medicine provider prior to my consultation. Both patient and family would like to be transferred to a tertiary facility at this time. I have explained to the patient that he is receiving standard of care treatment at this time at [facility] although he is welcomed to be transferred if there is an accepting physician and facility. I explained to the patient that patient has sepsis, pneumonia, acute kidney injury and may need vasopressors if his blood pressure drops again. I answered all their questions Total Critical Care Time
--- NOTE | 2023-09-22 16:09 | PC.NURSE ---
Patient going to ICU after cardiac cath, report given to MILADYS Castillo.
[2023-09-22] MEDS: DOXYCYCLINE 100 MG/NS 100 ML 100 MG/100 ML BAG IVPB ×2 (16:25→23:55)
--- NOTE | 2023-09-22 16:30 | P.CONNP_ITS ---
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 * contrast exposure may worsen things further (CTA on 09/21 and cardiac cath today) * urine studies and CPK pending; renal ultrasound normal * s/p aggressive IVF resuscitation and now with evidence of mild volume overload * remains at risk for SUPERVISOR SHUTTLE PREPARATION/dialysis * follow trend of repeat labs and UOP (2) Septic shock: Code(s): A41.9 - Sepsis, unspecified organism; R65.21 - Severe sepsis with septic shock Status: Acute Assessment and Plan: * presentation with hypotension, elevated WBC, and lactic acidosis * felt to be secondary to extensive pneumonia in association with positive blood culture * s/p IVF resuscitation * BP remain soft but with adequate MAP - no need for vasopressor therapy as of yet * negative for influenza/RSV/COVID * follow culture data * on antibiotics (3) Acute hypoxic respiratory failure: Code(s): J96.01 - Acute respiratory failure with hypoxia Status: Acute Assessment and Plan: * felt to be due to volume overload and pneumonia * recent NSTEMI/cardiac issues and drop in EF by Echo may be playing a role as well * continue oxygen support * follow urine output (as remains at risk for worsening volume overload due to kidney dysfunction (4) NSTEMI (non-ST elevated myocardial infarction): Code(s): I21.4 - Non-ST elevation (NSTEMI) myocardial infarction Status: Acute Assessment and Plan: * elevated troponins noted * Echo resultsreviewed * s/p cardiac catheterization: * no evidence of significant coronary artery disease * felt to be a type 2 OH from demand ischemia secondary to sepsis/shock * Cardiology following (5) Congestive heart failure: Code(s): I50.9 - Heart failure, unspecified Status: Acute Assessment and Plan: * elevated BNP noted * recent Echo with EF ~ 40 - 45% * likely worsened by IVF resuscitation and MARY/ARF * follow volume status and urine output (6) Community acquired pneumonia: Code(s): J18.9 - Pneumonia, unspecified organism Status: Acute Assessment and Plan: * as noted by imaging to date (quite extensive by CT of chest) * on antibiotis * follow respiratory status closely (7) Lactic acidosis: Code(s): E87.20 - Acidosis, unspecified Status: Acute Assessment and Plan: * as noted on admission * not much improvement s/p IVF resuscitation * felt to be secondary to sepsis and hypotension * follow trend with ongoing therapy (8) Anemia: Code(s): D64.9 - Anemia, unspecified Status: Acute Assessment and Plan: * likely due to MARY and acute illness * no evidene of blood loss * follow trend of H/H Long extensive discussion ( greater than 20 min) with the patient regarding his acute kidney injury/acute renal failure in conjunction with his other medical issues and problems as noted above. I voiced my concern to the patient that he may require renal replacement therapy /dialysis if his kidney function continues to deteriorate or if he runs into issues / problems wi
--- NOTE | 2023-09-22 16:30 | PM.CNNEP ---
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 contrast exposure may worsen things further (CTA on 09/21 and cardiac cath today) urine studies and CPK pending; renal ultrasound normal s/p aggressive IVF resuscitation and now with evidence of mild volume overload remains at risk for FLANGE TURNER/dialysis follow trend of repeat labs and UOP (2) Septic shock: Code(s): A41.9 - Sepsis, unspecified organism; R65.21 - Severe sepsis with septic shock Status: Acute Assessment and Plan: presentation with hypotension, elevated WBC, and lactic acidosis felt to be secondary to extensive pneumonia in association with positive blood culture s/p IVF resuscitation BP remain soft but with adequate MAP - no need for vasopressor therapy as of yet negative for influenza/RSV/COVID follow culture data on antibiotics (3) Acute hypoxic respiratory failure: Code(s): J96.01 - Acute respiratory failure with hypoxia Status: Acute Assessment and Plan: felt to be due to volume overload and pneumonia recent NSTEMI/cardiac issues and drop in EF by Echo may be playing a role as well continue oxygen support follow urine output (as remains at risk for worsening volume overload due to kidney dysfunction (4) NSTEMI (non-ST elevated myocardial infarction): Code(s): I21.4 - Non-ST elevation (NSTEMI) myocardial infarction Status: Acute Assessment and Plan: elevated troponins noted Echo resultsreviewed s/p cardiac catheterization: no evidence of significant coronary artery disease felt to be a type 2 AL from demand ischemia secondary to sepsis/shock Cardiology following (5) Congestive heart failure: Code(s): I50.9 - Heart failure, unspecified Status: Acute Assessment and Plan: elevated BNP noted recent Echo with EF ~ 40 - 45% likely worsened by IVF resuscitation and MARY/ARF follow volume status and urine output (6) Community acquired pneumonia: Code(s): J18.9 - Pneumonia, unspecified organism Status: Acute Assessment and Plan: as noted by imaging to date (quite extensive by CT of chest) on antibiotis follow respiratory status closely (7) Lactic acidosis: Code(s): E87.20 - Acidosis, unspecified Status: Acute Assessment and Plan: as noted on admission not much improvement s/p IVF resuscitation felt to be secondary to sepsis and hypotension follow trend with ongoing therapy (8) Anemia: Code(s): D64.9 - Anemia, unspecified Status: Acute Assessment and Plan: likely due to MARY and acute illness no evidene of blood loss follow trend of H/H Long extensive discussion ( greater than 20 min) with the patient regarding his acute kidney injury/acute renal failure in conjunction with his other medical issues and problems as noted above. I voiced my concern to the patient that he may require renal replacement therapy /dialysis if his kidney function continues to deteriorate or if he runs into issues / problems with critical electrolyte abnormalities, worsening metabolic acidosis, volume overload, or uremia. He appeared to voice understanding to this possibility. I will continue follow patient with you while he remains hospitalized to make further recommendations as needed. Thank you for allowing me to participate in the care of this patient. History of Present Illness Reason for Consult Consult date: 09/22/23 Reason for consult: acute renal failure Chief Complaint Chief co
[2023-09-22] MEDS: SODIUM ZIRCONIUM CYCLOSILICATE 10 GM POWD.PACK PO (16:34)
--- NOTE | 2023-09-22 17:00 | PC.NURSE ---
Patient noted to desaturate significantly post sitting at side of bed to void.
[2023-09-22 17:11] LABS: Base Excess ABG -4.7 mEq/l (+/-2.0); Fractional Inspired Oxygen 100 %; Oxygen Content ABG 15.4 %vol (16.0-22.0); Oxygen Saturation ABG 96.1 % (95.0-100.0); Oxyhemoglobin 94.7 % THb (90.0-100.0); PO2 ABG 80.7 mmHg (80.0-100.0); PO2 FiO2 Ratio Arterial Blood 0.81 %; Total Hemoglobin 11.5 g/dL (12.0-18.0); pH ABG 7.406 (7.350-7.450)
[2023-09-22 17:11] LABS: Appearance Urine Cloudy (Clear); Bacteria Urine None Seen /hpf; Bilirubin Urine Negative (Negative); Blood Urine 1+ (Negative); Color Urine Yellow (Yellow); Glucose Urine UA Negative (Negative); Granular Casts Urine Present /lpf; Ketones Urine Negative (Negative); Leukocyte Esterase Ur Negative LEU/UL (Negative); Need Manual Microscopic Reviewed; Nitrate Urine Negative (Negative); Protein Urine 1+ mg/dL (Negative); RBC Urine 0-2 /hpf (0-2); Specific Grav Ur 1.034 (1.001-1.035); Squamous Epithelial Cell Urine Few /hpf (Few); Urobilinogen Urine 0.2 mg/dL (<2.0); WBC Urine 0-5 /hpf; pH Urine 5.5 (5.0-9.0)
[2023-09-22 17:12] LABS: Device HIGH FLOW NASAL CANN; Modified Allen's Test Pass; Site Drawn RIGHT RADIAL
[2023-09-22 17:13] LABS: Add Urine Microscopic? YES
[2023-09-22 17:26] LABS: Creatinine Urine 151.3 mg/dL; Total Protein Urine Random 25 mg/dL; Ur Ttl Prot Creatinine Ratio 0.17 mg/mg (0-0.20); Urea Random Urine 619 MG/DL
[2023-09-22 17:35] LABS: Sodium Urine Random 20 meq/L
[2023-09-22 18:06] LABS: Eosinophil Urine None Seen % (None Seen); Urine Eos QC 2nd Tech Confirmed
--- NOTE | 2023-09-22 18:06 | PC.NURSE ---
This patient, Baldemar Uriostegui, was received from Handle Lathe Operator on 09/22/23 at 1618. Patient/family oriented to unit policies and routines
[2023-09-22 18:26] LABS: Anion Gap 10 mmol/L (8-16); Blood Urea Nitrogen 43 mg/dL (9-20); Calcium 7.9 mg/dL (8.4-10.2); Carbon Dioxide 20 mmol/L (22-30); Chloride 101 mmol/L (98-107); Estimated CRCL calculation 25 ml/min; Estimated Glomerular Filt Rate 19; Glucose 84 mg/dL (65-110); Lactic Acid 3.3 mmol/L (0.7-2.0); Potassium 4.6 mmol/L (3.4-5.0); Sodium 131 mmol/L (137-145)
--- NOTE | 2023-09-22 19:20 | P.PNCROSS_ITS ---
Event Note Event Note Event Note: Patient here with septic shock, acute kidney failure, NSTEMI, HF, and large PNA involving the R middle and lower lobes bilaterally. Patient with increasing O2 requirements around 16:18. Was on NRB at 6L and desaturated below 90% after attempting to sit on side of the bed to urinate. Patient had 400 mL out. However, became acutely tachypneic and placed on 15L HFNC. BIPAP brought near bedside. With increase in supplemental O2 patient's distress resolved and O2 sats have remained above 97%. Now resting comfortably with no complaints. Physical Exam revealed no active wheezing, absent to diminished lung sounds in the right middle and lower lobes and left lower lobe. overall diminished air movement. +tachypnea with RR around 26. Upper extremities and lower extremities edematous without pitting. Flattened affect. Mild tachycardia without murmur. Due to intolerance of using urinal and current MARY/volume overload - cardenas ordered and placed. adding albumin 25G Q6H x4, current level is 2.8. Patient has sustained soft pressures throughout the day but maintaining MAP greater than 65. Nephrology has seen patient. Updated hospitalist. 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 Additional urine labs pending. 12:30 Update: Notified that output from [facility] has been red. No clots. Patient reported some discomfort with insertion. Bedside RN has been monitoring closely. Flushes easily but has not cleared up despite greater than 1000 mL of output. Suspect discoloration may be myoglobinuria and/or glomerulonephritis. Currently febrile at 100.5 ?. Heart rate 106, and sat 96% on 15 L HFNC. Will trial levalbuterol/atrovent neb x1, defer continuation to church history professor based off response. Critical Care Time: I personally spent 45 minutes of direct patient care in cluding (but not limited to) the physical examination, decision-making, bedside evaluation, review of medical records, review of labs and imaging, discussion with nursing staff and other providers for collaborative, critical care management of this patient.
[2023-09-22 20:17] LABS: Vancomycin Trough 7.3 ug/mL (10.0-20.0)
[2023-09-22] MEDS: AMITRIPTYLINE HCL 25 MG TABLET 100 MG PO (20:52)
[2023-09-22] MEDS: ALBUMIN HUMAN 25% 25 GM/100 ML 100 ML IVPB ×2 (20:54→23:56)
[2023-09-22] MEDS: VANCOMYCIN 1,500 MG/NS 500 ML 1,500 MG/500 ML BAG 250 MG IVPB (21:27)
[2023-09-22 22:11] LABS: Creatine Kinase 827 U/L (55-170)
[2023-09-23] VITALS (58 sets, daily range): BP systolic 99–115; BP diastolic 69–88; PULSE 95–105; RESP 13–42; TEMP 37.6–38.6; O2SAT 92–100
[2023-09-23] MEDS: IPRATROPIUM BR 0.02% INH SOLN 0.5 MG/2.5 ML VIAL 1 MG INHALATION (03:40)
[2023-09-23] MEDS: LEVALBUTEROL NEB 1.25 MG/3 ML INHALATION (03:40)
[2023-09-23 04:27] LABS: Hemoglobin 9.3 g/dL (14.0-18.0); Mean Corpuscular HGB Conc 33.2 g/dl (32-36); Mean Corpuscular Hemoglobin 29.2 pg (26-34); Mean Corpuscular Volume 88.1 fl (80-100); Mean Platelet Volume 10.6 fl (7.4-10.4); Platelet Count Result 182 k/mm3 (150-375); Red Blood Count 3.18 M/mm3 (4.6-6.20); Red Cell Distribution Width 15.1 % (11.5-14.5); White Blood Count 13.5 K/mm3 (4.5-10.0)
[2023-09-23 04:37] LABS: Alanine Aminotransferase 102 U/L (6-50); Alkaline Phosphatase 135 U/L (38-126); Anion Gap 9 mmol/L (8-16); Aspartate Amino Transferase 126 U/L (17-59); Bilirubin,Total 0.6 mg/dL (0.2-1.3); Blood Urea Nitrogen 36 mg/dL (9-20); Calcium 7.9 mg/dL (8.4-10.2); Carbon Dioxide 21 mmol/L (22-30); Chloride 103 mmol/L (98-107); Creatine Kinase 565 U/L (55-170); Estimated CRCL calculation 34 ml/min; Estimated Glomerular Filt Rate 27; Glucose 75 mg/dL (65-110); Lactic Acid Reflex 1.9 mmol/L (0.7-2.0); Magnesium 2.1 mg/dL (1.6-2.3); Phosphorus 3.3 mg/dL (2.5-4.5); Potassium 4.2 mmol/L (3.4-5.0); Sodium 133 mmol/L (137-145)
[2023-09-23 05:04] LABS: Band Neutrophils Percent 5 % (0-6); Eosinophils Absolute Manual 0.13 K/mm3 (0.02-0.5); Eosinophils Percent Manual 1 % (0-4); Lymphocytes Absolute Manual 1.21 K/mm3 (1.1-4.5); Neutrophils Absolute Manual 12.15 K/mm3 (1.3-6.7); Neutrophils Percent Manual 85 % (46-73); Platelet Estimate Adequate (Adequate); Schistocytes None Seen (NORMAL); Total Cells Counted 100
[2023-09-23 05:49] LABS: Hepatitis B Surface Antigen Negative (Negative)
[2023-09-23 06:08] LABS: Hepatitis B Surface Anti Res Positive
[2023-09-23] MEDS: ALBUMIN HUMAN 25% 25 GM/100 ML 100 ML IVPB ×2 (06:30→11:13)
--- NOTE | 2023-09-23 08:43 | WPDINTPN ---
Progress Note: A&P Assessment and Plan (1) Septic shock: Code(s): A41.9 - Sepsis, unspecified organism; R65.21 - Severe sepsis with septic shock Status: Acute Assessment and Plan: Septic shock secondary to community-acquired pneumonia and Gram-positive bacteremia Patient has received adequate amount of IV fluid and appears to had developed volume overload and further IV fluids were held on admission to ICU Patient will be transferred to ICU post cardiac catheterization and monitored for his hemodynamics. His blood pressure has been adequate to the night and his lactic acid level has normalized. His influenza RSV and COVID PCR were negative His nasal MRSA screen was negative His blood cultures are growing Gram-positive cocci and identification is pending. Will send repeat set of cultures after 48 hours on antibiotics He is currently on doxycycline vancomycin and cefepime which will be continued until we have identification on culture results (2) Acute kidney failure: Code(s): N17.9 - Acute kidney failure, unspecified Status: Acute Assessment and Plan: Patient presented with creatinine of 4.3 most likely secondary to hypotension and hypovolemia and sepsis which may have progressed to ATN Renal ultrasound - Unremarkable ultrasound of the kidneys and urinary bladder. Check CK level Nephrology consulted Holding further IV fluids as patient appears to have volume overload Monitor urine output electrolytes and creatinine which is improving (3) Acute hypoxic respiratory failure: Code(s): J96.01 - Acute respiratory failure with hypoxia Status: Acute Assessment and Plan: Patient developed acute hypoxic respiratory failure which is likely secondary to combination of pneumonia and volume overload He is currently on 10 L high-flow nasal cannula and appears comfortable with no respiratory distress Continue to hold further IV fluids and monitor Add incentive spirometry and get him up in a chair to minimize atelectasis (4) NSTEMI (non-ST elevated myocardial infarction): Code(s): I21.4 - Non-ST elevation (NSTEMI) myocardial infarction Status: Acute Assessment and Plan: Patient had elevated troponin and underwent cardiac catheterization which did not show any obstructive coronary disease This appears to be likely secondary to type 2 non STEMI from demand ischemia due to sepsis (5) Congestive heart failure: Code(s): I50.9 - Heart failure, unspecified Status: Acute Assessment and Plan: Patient has elevated BNP and has developed volume overload secondary to IV fluids and renal failure Echocardiogram showed Summary ? 1. Left ventricular chamber dimension is normal. ? 2. Left ventricular systolic function is mildly reduced, estimated at 40-45%. ? 3. There is no increased left ventricular wall thickness. ? 4. The left ventricular diastolic function is normal. ? 5. There is mild mitral valve regurgitation. He may need a SAM. Will discuss with Cardiology regarding quality of TTE images (6) Community acquired pneumonia: Code(s): J18.9 - Pneumonia, unspecified organism Status: Acute Assessment and Plan: See above Plan DVT prophylaxis -socks subcu Lovenox Stress ulcer prophylaxis - NA Nutrition -diet ordered Code Status - Full Code Potential transfer to tertiary facility was discussed with patient and his family by lube worker and internal medicine provider prior to my consultation. Both patient and family wanted to be transferred to a tertiary facility at this time. Ie explained to the patient that he is receiving standard of care treatment at this time at [facility] although he is welcomed to be transferred if there is an accepting physician and facility. I explained to the patient that patient has sepsis, pneumonia, acute kidney injury and may need vasopressors if his blood pressure drops again. I spoke to trace evidence technician at [facility]
--- NOTE | 2023-09-23 09:02 | PM.PNNEP ---
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 contrast exposure noted but this was done post-admission (CTA on 09/21 and cardiac cath today) evaluation to date noted: renal ultrasound unremarkable CPK mildy elevated but not enough to affect kidney function urine electrolytes prerenal urine eosinophils UA with blod and protein urine studies and CPK pending; renal ultrasound normal s/p aggressive IVF resuscitation and now with evidence of mild volume overload remains at risk for ACROBATIC DANCER/dialysis follow trend of repeat labs and UOP (2) Septic shock: Code(s): A41.9 - Sepsis, unspecified organism; R65.21 - Severe sepsis with septic shock Status: Acute Assessment and Plan: presentation with hypotension, elevated WBC, and lactic acidosis felt to be secondary to extensive pneumonia in association with positive blood culture s/p IVF resuscitation BP remain soft but with adequate MAP - no need for vasopressor therapy as of yet negative for influenza/RSV/COVID blood cultures with Strep pneumoniae on antibiotics (3) Acute hypoxic respiratory failure: Code(s): J96.01 - Acute respiratory failure with hypoxia Status: Acute Assessment and Plan: felt to be due to volume overload and pneumonia recent NSTEMI/cardiac issues and drop in EF by Echo may be playing a role as well continue oxygen support follow urine output (as remains at risk for worsening volume overload due to kidney dysfunction (4) NSTEMI (non-ST elevated myocardial infarction): Code(s): I21.4 - Non-ST elevation (NSTEMI) myocardial infarction Status: Acute Assessment and Plan: elevated troponins noted Echo resultsreviewed s/p cardiac catheterization: no evidence of significant coronary artery disease felt to be a type 2 NM from demand ischemia secondary to sepsis/shock Cardiology following (5) Congestive heart failure: Code(s): I50.9 - Heart failure, unspecified Status: Acute Assessment and Plan: elevated BNP noted recent Echo with EF ~ 40 - 45% likely worsened by IVF resuscitation and MARY/ARF follow volume status and urine output (6) Community acquired pneumonia: Code(s): J18.9 - Pneumonia, unspecified organism Status: Acute Assessment and Plan: as noted by imaging to date (quite extensive by CT of chest) on antibiotis follow respiratory status closely (7) Lactic acidosis: Code(s): E87.20 - Acidosis, unspecified Status: Acute Assessment and Plan: better as noted on admission not much improvement s/p IVF resuscitation felt to be secondary to sepsis and hypotension follow trend with ongoing therapy (8) Anemia: Code(s): D64.9 - Anemia, unspecified Status: Acute Assessment and Plan: likely due to MARY and acute illness no evidene of blood loss follow trend of H/H Will continue to follow. Subjective Date/time seen: 09/23/23 09:02 Interval history: Follow-up for acute kidney injury/acute renal failure. Events noted overnight -- issues with hypoxia and tachypnea when attempting to urinate while sitting on the side of bed while using urinal requiring increase in oxygen supplementation; cardenas catheter subsequently placed with possible hematuria; stable hemodynamics overnight without the need fo
--- NOTE | 2023-09-23 09:02 | P.PNNP_ITS ---
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 * contrast exposure noted but this was done post-admission (CTA on 09/21 and cardiac cath today) * evaluation to date noted: * renal ultrasound unremarkable * CPK mildy elevated but not enough to affect kidney function * urine electrolytes prerenal * urine eosinophils * UA with blod and protein * urine studies and CPK pending; renal ultrasound normal * s/p aggressive IVF resuscitation and now with evidence of mild volume overload * remains at risk for ACQUISITION MARKETING MANAGER/dialysis * follow trend of repeat labs and UOP (2) Septic shock: Code(s): A41.9 - Sepsis, unspecified organism; R65.21 - Severe sepsis with septic shock Status: Acute Assessment and Plan: * presentation with hypotension, elevated WBC, and lactic acidosis * felt to be secondary to extensive pneumonia in association with positive blood culture * s/p IVF resuscitation * BP remain soft but with adequate MAP - no need for vasopressor therapy as of yet * negative for influenza/RSV/COVID * blood cultures with Strep pneumoniae * on antibiotics (3) Acute hypoxic respiratory failure: Code(s): J96.01 - Acute respiratory failure with hypoxia Status: Acute Assessment and Plan: * felt to be due to volume overload and pneumonia * recent NSTEMI/cardiac issues and drop in EF by Echo may be playing a role as well * continue oxygen support * follow urine output (as remains at risk for worsening volume overload due to kidney dysfunction (4) NSTEMI (non-ST elevated myocardial infarction): Code(s): I21.4 - Non-ST elevation (NSTEMI) myocardial infarction Status: Acute Assessment and Plan: * elevated troponins noted * Echo resultsreviewed * s/p cardiac catheterization: * no evidence of significant coronary artery disease * felt to be a type 2 UT from demand ischemia secondary to sepsis/shock * Cardiology following (5) Congestive heart failure: Code(s): I50.9 - Heart failure, unspecified Status: Acute Assessment and Plan: * elevated BNP noted * recent Echo with EF ~ 40 - 45% * likely worsened by IVF resuscitation and MARY/ARF * follow volume status and urine output (6) Community acquired pneumonia: Code(s): J18.9 - Pneumonia, unspecified organism Status: Acute Assessment and Plan: * as noted by imaging to date (quite extensive by CT of chest) * on antibiotis * follow respiratory status closely (7) Lactic acidosis: Code(s): E87.20 - Acidosis, unspecified Status: Acute Assessment and Plan: * better * as noted on admission * not much improvement s/p IVF resuscitation * felt to be secondary to sepsis and hypotension * follow trend with ongoing therapy (8) Anemia: Code(s): D64.9 - Anemia, unspecified Status: Acute Assessment and Plan: * likely due to MARY and
[2023-09-23] MEDS: ASPIRIN 81 MG ENTERIC TABLET PO (09:17)
[2023-09-23] MEDS: CEFEPIME 1 GM/NS 50 ML 1 GM/50 ML BAG IVPB (09:18)
[2023-09-23] MEDS: ENOXAPARIN 40 MG/0.4 ML SYRINGE SUB-Q (09:18)
[2023-09-23] MEDS: cefTRIAXone 2 GM/NS 100 ML 2 GM/100 ML BAG IVPB (11:16)
[2023-09-23] MEDS: DOXYCYCLINE 100 MG/NS 100 ML 100 MG/100 ML BAG IVPB (12:16)
--- NOTE | 2023-09-23 14:32 | P.PNIM_ITS ---
Progress Note: A&P Assessment and Plan (1) Septic shock: Code(s): A41.9 - Sepsis, unspecified organism; R65.21 - Severe sepsis with septic shock Status: Acute Assessment and Plan: Patient presented to the ED with leukocytosis, tachypnea, tachycardia, hypotension, lactic acidosis, MARY, Hypoxia and heart failure. * Appears to be shock due to pneumonia. * Hypoperfusion of the kidneys causing an MARY. * Trend lactic acid levels: 5.2, 5.6, 4.9, 3.3, 1.9 * IV fluids at 50 per Nephrology recommendations. * Monitor blood pressure. * Continue oxygen supplementation (2) Lobar pneumonia: Code(s): J18.1 - Lobar pneumonia, unspecified organism Status: Acute Assessment and Plan: CTA of the chest revealing widespread pneumonia, worse in the right upper lobe, no pulmonary embolism present. * Patient started on vancomycin, cefepime and doxycycline. * Sputum culture ordered. * Blood cultures positive for strep pneumonia sensitivities pending * Patient currently on high-flow oxygen 8 L Wean to maintain O2 saturation greater than 92%. * Flu COVID and RSV negative (3) Acute hypoxic respiratory failure: Code(s): J96.01 - Acute respiratory failure with hypoxia Status: Acute Assessment and Plan: Hypoxia likely secondary to pneumonia * Patient was put on BiPAP due to hypoxia on non-rebreather. weaned to maintain O2 saturation greater than 92%. * ABG revealing metabolic alkalosis with respiratory compensation (4) Elevated troponin: Code(s): R79.89 - Other specified abnormal findings of blood chemistry Status: Acute Assessment and Plan: On presentation to the ED patient experience weakness, syncopal episode and chest pain. * Troponin: 0.13, 0.26, 0.54, 20.5 * Cardiology consulted. * Cardiac catheterization did not reveal any signs of occlusion. (5) Acute kidney failure: Code(s): N17.9 - Acute kidney failure, unspecified Status: Acute Assessment and Plan: Patient presents to ED with a BUN and creatinine of 36/4.3, lactic acid of 5.2 reflux to 5.6. * Patient was given 5 L of fluids in the ED with little improvement of kidney function. * Renal ultrasound ordered and revealed normal kidneys. * Nephrology consulted and they believe likely due to hypoperfusion of the ki dneys due to acute heart failure/sepsis * UA negative for infection * Espinosa catheter was placed. * BUN and creatinine improved today to 36/2.5 (6) Syncope and collapse: Code(s): R55 - Syncope and collapse Status: Acute Assessment and Plan: Differential: vasovagal, [place], hypotension, sepsis * Patient was found to be hypotensive on arrival and was given IV boluses * Echocardiogram with EF of 40-45% and normal diastolic function (7) Lactic acidosis: Code(s): E87.20 - Acidosis, unspecified Status: Acute Assessment and Plan: Lactic acid: 5.2, 5.6, 4.9, 3.3, 1.9 * resolved (8) Congestive heart failure: Code(s): I50.9 - Heart failure, unspecified Status: Acute Assessment and Plan: Echocardiogram revealing EF of 40-45%. * BNP of 7000. * Cardiology consulted. * Heart failure likely due to acute cardiac event Subjective Date/time seen: 09/23/23 14:32 Interval history: Patient improved today. He is still requiring high-flow oxygen but no longer on Bi
--- NOTE | 2023-09-23 14:32 | PM.IMPN ---
Progress Note: A&P Assessment and Plan (1) Septic shock: Code(s): A41.9 - Sepsis, unspecified organism; R65.21 - Severe sepsis with septic shock Status: Acute Assessment and Plan: Patient presented to the ED with leukocytosis, tachypnea, tachycardia, hypotension, lactic acidosis, MARY, Hypoxia and heart failure. Appears to be shock due to pneumonia. Hypoperfusion of the kidneys causing an MARY. Trend lactic acid levels: 5.2, 5.6, 4.9, 3.3, 1.9 IV fluids at 50 per Nephrology recommendations. Monitor blood pressure. Continue oxygen supplementation (2) Lobar pneumonia: Code(s): J18.1 - Lobar pneumonia, unspecified organism Status: Acute Assessment and Plan: CTA of the chest revealing widespread pneumonia, worse in the right upper lobe, no pulmonary embolism present. Patient started on vancomycin, cefepime and doxycycline. Sputum culture ordered. Blood cultures positive for strep pneumonia sensitivities pending Patient currently on high-flow oxygen 8 L Wean to maintain O2 saturation greater than 92%. Flu COVID and RSV negative (3) Acute hypoxic respiratory failure: Code(s): J96.01 - Acute respiratory failure with hypoxia Status: Acute Assessment and Plan: Hypoxia likely secondary to pneumonia Patient was put on BiPAP due to hypoxia on non-rebreather. weaned to maintain O2 saturation greater than 92%. ABG revealing metabolic alkalosis with respiratory compensation (4) Elevated troponin: Code(s): R79.89 - Other specified abnormal findings of blood chemistry Status: Acute Assessment and Plan: On presentation to the ED patient experience weakness, syncopal episode and chest pain. Troponin: 0.13, 0.26, 0.54, 20.5 Cardiology consulted. Cardiac catheterization did not reveal any signs of occlusion. (5) Acute kidney failure: Code(s): N17.9 - Acute kidney failure, unspecified Status: Acute Assessment and Plan: Patient presents to ED with a BUN and creatinine of 36/4.3, lactic acid of 5.2 reflux to 5.6. Patient was given 5 L of fluids in the ED with little improvement of kidney function. Renal ultrasound ordered and revealed normal kidneys. Nephrology consulted and they believe likely due to hypoperfusion of the kidneys due to acute heart failure/sepsis UA negative for infection Espinosa catheter was placed. BUN and creatinine improved today to 36/2.5 (6) Syncope and collapse: Code(s): R55 - Syncope and collapse Status: Acute Assessment and Plan: Differential: vasovagal, [place], hypotension, sepsis Patient was found to be hypotensive on arrival and was given IV boluses Echocardiogram with EF of 40-45% and normal diastolic function (7) Lactic acidosis: Code(s): E87.20 - Acidosis, unspecified Status: Acute Assessment and Plan: Lactic acid: 5.2, 5.6, 4.9, 3.3, 1.9 resolved (8) Congestive heart failure: Code(s): I50.9 - Heart failure, unspecified Status: Acute Assessment and Plan: Echocardiogram revealing EF of 40-45%. BNP of 7000. Cardiology consulted. Heart failure likely due to acute cardiac event Subjective Date/time seen: 09/23/23 14:32 Interval history: Patient improved today. He is still requiring high-flow oxygen but no longer on BiPAP. Has increased respirations but appears overall better than yesterday. Labs are improved with BUN creatinine of 36/2.5. Patient's blood cultures came back positive Streptococcus pneumoniae. Continue current antibiotic regimen. Discussed transfer with patient and his As well as the viticulture teacher. Due to patient's sepsis pneumonia due to Streptococcus pneumonia we do not believe that transfer is necessary at this time. If patient's condition worsens or he develops any new problems that would warrant transfer will initi
[2023-09-23] MEDS: ACETAMINOPHEN 325 MG TABLET 650 MG PO (15:17)
[2023-09-23] MEDS: AMITRIPTYLINE HCL 25 MG TABLET 100 MG PO (20:52)
[2023-09-24] VITALS (16 sets, daily range): BP systolic 101–120; BP diastolic 71–94; PULSE 91–99; RESP 16–28; TEMP 36.7–37.7; O2SAT 92–100
[2023-09-24] MEDS: DOXYCYCLINE 100 MG/NS 100 ML 100 MG/100 ML BAG IVPB (00:41)
[2023-09-24 04:35] LABS: Mean Corpuscular HGB Conc 33.3 g/dl (32-36); Mean Corpuscular Hemoglobin 29.1 pg (26-34); Mean Corpuscular Volume 87.2 fl (80-100); Mean Platelet Volume 10.8 fl (7.4-10.4); Platelet Count Result 207 k/mm3 (150-375); Red Blood Count 3.44 M/mm3 (4.6-6.20); Red Cell Distribution Width 14.9 % (11.5-14.5); White Blood Count 13.9 K/mm3 (4.5-10.0)
[2023-09-24 04:45] LABS: Alanine Aminotransferase 105 U/L (6-50); Alkaline Phosphatase 361 U/L (38-126); Anion Gap 6 mmol/L (8-16); Aspartate Amino Transferase 103 U/L (17-59); Bilirubin,Total 0.6 mg/dL (0.2-1.3); Blood Urea Nitrogen 32 mg/dL (9-20); Calcium 8.4 mg/dL (8.4-10.2); Carbon Dioxide 24 mmol/L (22-30); Chloride 104 mmol/L (98-107); Estimated CRCL calculation 50 ml/min; Estimated Glomerular Filt Rate 42; Glucose 86 mg/dL (65-110); Magnesium 2.2 mg/dL (1.6-2.3); Phosphorus 2.6 mg/dL (2.5-4.5); Potassium 3.6 mmol/L (3.4-5.0); Sodium 134 mmol/L (137-145)
--- NOTE | 2023-09-24 08:19 | WPDINTPN ---
Progress Note: A&P Assessment and Plan (1) Septic shock: Code(s): A41.9 - Sepsis, unspecified organism; R65.21 - Severe sepsis with septic shock Status: Acute Assessment and Plan: Septic shock secondary to pneumococcal community-acquired pneumonia and pneumococcal bacteremia Patient has received adequate amount of IV fluid and appears to had developed volume overload and further IV fluids were held on admission to ICU Patient was transferred to ICU post cardiac catheterization and monitored for his hemodynamics. His blood pressure has been adequate now and his lactic acid level has normalized. His influenza RSV and COVID PCR were negative His nasal MRSA screen was negative His blood cultures have grown strep pneumonia. Will send repeat set of blood cultures Patient was on doxycycline vancomycin and cefepime which has been changed to doxycycline and Rocephin (2) Acute kidney failure: Code(s): N17.9 - Acute kidney failure, unspecified Status: Acute Assessment and Plan: Patient presented with creatinine of 4.3 most likely secondary to hypotension and hypovolemia and sepsis which may have progressed to ATN Renal ultrasound - Unremarkable ultrasound of the kidneys and urinary bladder. Check CK level Nephrology consulted Holding further IV fluids as patient appears to have developed volume overload on presentation to ICU Monitor urine output electrolytes and creatinine which continues to improve (3) Acute hypoxic respiratory failure: Code(s): J96.01 - Acute respiratory failure with hypoxia Status: Acute Assessment and Plan: Patient developed acute hypoxic respiratory failure which is likely secondary to combination of pneumonia and volume overload Hypoxia has improved and he is now on 2 L nasal cannula and appears comfortable with no respiratory distress Continue to hold further IV fluids and monitor Continue incentive spirometry and get him up in a chair to minimize atelectasis P.r.n. bronchodilator (4) NSTEMI (non-ST elevated myocardial infarction): Code(s): I21.4 - Non-ST elevation (NSTEMI) myocardial infarction Status: Acute Assessment and Plan: Patient had elevated troponin and underwent cardiac catheterization which did not show any obstructive coronary disease This appears to be likely secondary to type 2 non STEMI from demand ischemia due to sepsis On aspirin (5) Congestive heart failure: Code(s): I50.9 - Heart failure, unspecified Status: Acute Assessment and Plan: Patient has elevated BNP and has developed volume overload secondary to IV fluids and renal failure Echocardiogram showed Summary ? 1. Left ventricular chamber dimension is normal. ? 2. Left ventricular systolic function is mildly reduced, estimated at 40-45%. ? 3. There is no increased left ventricular wall thickness. ? 4. The left ventricular diastolic function is normal. ? 5. There is mild mitral valve regurgitation. (6) Community acquired pneumonia: Code(s): J18.9 - Pneumonia, unspecified organism Status: Acute Assessment and Plan: See above Plan DVT prophylaxis -subcu Lovenox Stress ulcer prophylaxis - NA Nutrition -diet ordered Code Status - Full Code PT consult transfer out of ICU today Subjective Date/time seen: 09/24/23 He had fever overnight but afebrile this morning. He states his breathing is overall better but he still feels short of breath on exertion. Denies any pain. Still has cough which is productive. He states he got his appetite back yesterday. Denies any other complaints. All other systems were reviewed and were negative. Sinus rhythm on the monitor patient is on 2 L nasal cannula respiratory rate in low 20s when relaxed. Blood pressure adequate Adequate urine output Review of Systems Review of Systems: All systems reviewed & are unremarkable except as noted in HPI and below (HPI) Exam Narrative: Gener
[2023-09-24] MEDS: POTASSIUM CHLORIDE 20 MEQ PACKET (FOR LIQUID) 40 MEQ FEED TUBE (08:37)
[2023-09-24] MEDS: ASPIRIN 81 MG ENTERIC TABLET PO (08:37)
[2023-09-24] MEDS: ENOXAPARIN 40 MG/0.4 ML SYRINGE SUB-Q (08:37)
[2023-09-24] MEDS: IPRATROPIUM BR 0.02% INH SOLN 0.5 MG/2.5 ML VIAL INHALATION (09:04)
[2023-09-24] MEDS: ALBUTEROL SULFATE NEB 2.5 MG/3 ML INH INHALATION (09:05)
--- NOTE | 2023-09-24 09:47 | PM.PNNEP ---
Progress Note: A&P Assessment and Plan (1) Acute kidney failure: Code(s): N17.9 - Acute kidney failure, unspecified Status: Acute Assessment and Plan: continues to improved reported normal renal function per patient (last testing was ~ a year ago by previous PCP) admission creatinine 4.3mg/dl suspect multifactorial etiology: prerenal factors hemodynamic instability/hypotension infection/sepsis (pneumonia + bacteremia) cardiac event continued use of BP medications [employer] element of urinary retension(?) - 400cc out via urinal but when cardenas catheter placed, another 550cc out... contrast exposure noted but this was done post-admission (CTA on 09/21 and cardiac cath today) evaluation to date noted: renal ultrasound unremarkable CPK mildy elevated but not enough to affect kidney function urine electrolytes prerenal urine eosinophils UA with blod and protein follow trend of repeat labs and UOP (2) Septic shock: Code(s): A41.9 - Sepsis, unspecified organism; R65.21 - Severe sepsis with septic shock Status: Acute Assessment and Plan: presentation with hypotension, elevated WBC, and lactic acidosis felt to be secondary to extensive pneumonia in association with positive blood culture s/p IVF resuscitation BP remain soft but with adequate MAP - no need for vasopressor therapy as of yet negative for influenza/RSV/COVID blood cultures with Strep pneumoniae - follow repeat cultures on antibiotics (3) Acute hypoxic respiratory failure: Code(s): J96.01 - Acute respiratory failure with hypoxia Status: Acute Assessment and Plan: clinically improving felt to be due to volume overload and pneumonia recent cardiac issues and drop in EF by Echo may be playing a role as well oxygen support as needed follow urine output (as remains at risk for worsening volume overload due to kidney dysfunction (4) NSTEMI (non-ST elevated myocardial infarction): Code(s): I21.4 - Non-ST elevation (NSTEMI) myocardial infarction Status: Acute Assessment and Plan: elevated troponins noted Echo results reviewed s/p cardiac catheterization: no evidence of significant coronary artery disease felt to be a type 2 [place] from demand ischemia secondary to sepsis/shock Cardiology following (5) Community acquired pneumonia: Code(s): J18.9 - Pneumonia, unspecified organism Status: Acute Assessment and Plan: as noted by imaging to date (quite extensive by CT of chest) on antibiotis follow respiratory status closely (6) Lactic acidosis: Code(s): E87.20 - Acidosis, unspecified Status: Acute Assessment and Plan: resolved as noted on admission not much improvement s/p IVF resuscitation felt to be secondary to sepsis and hypotension on admission (7) Anemia: Code(s): D64.9 - Anemia, unspecified Status: Acute Assessment and Plan: likely due to MARY and acute illness no evidence of blood loss follow trend of H/H Will continue to follow. Subjective Date/time seen: 09/24/23 09:47 Interval history: Follow-up for acute kidney injury/acute renal failure. Overall, he seems to be doing much better; breathing continues to improve but still has productive cough and notes shortness of breath with exertion; appetite seems to be doing better as well; stable oxygenation on 2L nasal cannula overnight and now on room air at the time of my visit; fever overnight but afebrile this morning; stable hemodynamics noted without the need for vasopressor therapy. Exam Narrative: General: WD/WN male in NAD Heart: normal S1 and S2; no rub Lungs: clear to auscultation anteriorly Abdomen: soft, nontender, nondistended, positive bowel sounds Extremities: no cyanosis or clubbing; no edema Skin: warm and intact Objective Data Vital Signs Vital Signs: Vital Signs Temp Pulse R
--- NOTE | 2023-09-24 09:47 | P.PNNP_ITS ---
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 * contrast exposure noted but this was done post-admission (CTA on 09/21 and cardiac cath today) * evaluation to date noted: * renal ultrasound unremarkable * CPK mildy elevated but not enough to affect kidney function * urine electrolytes prerenal * urine eosinophils * UA with blod and protein * follow trend of repeat labs and UOP (2) Septic shock: Code(s): A41.9 - Sepsis, unspecified organism; R65.21 - Severe sepsis with septic shock Status: Acute Assessment and Plan: * presentation with hypotension, elevated WBC, and lactic acidosis * felt to be secondary to extensive pneumonia in association with positive blood culture * s/p IVF resuscitation * BP remain soft but with adequate MAP - no need for vasopressor therapy as of yet * negative for influenza/RSV/COVID * blood cultures with Strep pneumoniae - follow repeat cultures * on antibiotics (3) Acute hypoxic respiratory failure: Code(s): J96.01 - Acute respiratory failure with hypoxia Status: Acute Assessment and Plan: * clinically improving * felt to be due to volume overload and pneumonia * recent cardiac issues and drop in EF by Echo may be playing a role as well * oxygen support as needed * follow urine output (as remains at risk for worsening volume overload due to kidney dysfunction (4) NSTEMI (non-ST elevated myocardial infarction): Code(s): I21.4 - Non-ST elevation (NSTEMI) myocardial infarction Status: Acute Assessment and Plan: * elevated troponins noted * Echo results reviewed * s/p cardiac catheterization: * no evidence of significant coronary artery disease * felt to be a type 2 [place] from demand ischemia secondary to sepsis/shock * Cardiology following (5) Community acquired pneumonia: Code(s): J18.9 - Pneumonia, unspecified organism Status: Acute Assessment and Plan: * as noted by imaging to date (quite extensive by CT of chest) * on antibiotis * follow respiratory status closely (6) Lactic acidosis: Code(s): E87.20 - Acidosis, unspecified Status: Acute Assessment and Plan: * resolved * as noted on admission * not much improvement s/p IVF resuscitation * felt to be secondary to sepsis and hypotension on admission (7) Anemia: Code(s): D64.9 - Anemia, unspecified Status: Acute Assessment and Plan: * likely due to MARY and acute illness * no evidence of blood loss * follow trend of H/H Will continue to follow. Subjective Date/time seen: 09/24/23 09:47 Interval history: Follow-up for acute kidney injury/acute renal failure. Overall, he seems to be doing much better; breathing continues to improve but still has productive cough and notes shortness of breath with exertion; appetite seems to be doing better as well; stable oxygenation on 2L nasal cannula
--- NOTE | 2023-09-24 10:08 | PM.PNCARD ---
Progress Note: A&P Assessment and Plan (1) Type 2 PA (myocardial infarction): Code(s): I21.A1 - Myocardial infarction type 2 Status: Acute Assessment and Plan: Significant troponin elevation and ST segment abnormality in the setting of sepsis, pneumonia. No significant obstructive CAD on coronary angiogram. Mild LV systolic dysfunction on echocardiogram. Significant clinical improvement. Not requiring supplemental oxygen. -continue aspirin. -add low-dose beta-rosa. -continue to monitor on telemetry for now. -outpatient Cardiology follow-up after hospital discharge. May repeat echocardiogram with Doppler in about 6 weeks to reassess LV systolic function. (2) Community acquired pneumonia: Code(s): J18.9 - Pneumonia, unspecified organism Status: Acute Assessment and Plan: Blood cultures positive for strep pneumonia. Appropriate antibiotics as per primary team. (3) MARY (acute kidney injury): Code(s): N17.9 - Acute kidney failure, unspecified Status: Acute Assessment and Plan: Creatinine is improving. Subjective Date/time seen: 09/24/23 10:08 Interval history: Date of service: 09/24/2023 Interval history: Patient is feeling better and is not requiring supplemental oxygen anymore. He has cough with scanty expectoration. He also has epistaxis on blowing nose which she attributes to dryness in the nose from oxygen. Denies chest pain or shortness of breath at present. His coronary angiogram did not show any significant obstructive CAD. Review of Systems Review of Systems: General: Feeling better Psychological: Negative for anxiety, depression Ophthalmic: negative for loss of vision ENT: Negative for epistaxis, headaches Allergy and immunology: Negative for hives, nasal congestion Hematologic and lymphatic: Negative for overt bleeding problems Endocrine: Negative for hot flashes, palpitations Respiratory: Cough with scanty expectoration Cardiovascular: Negative for chest pain Gastrointestinal: Negative for abdominal pain, nausea, vomiting, hematochezia Musculoskeletal: Negative for myalgia, joint pains Neurological: Negative for weakness Dermatological: Negative for rash, skin discoloration Exam Narrative: PHYSICAL EXAMINATION: GENERAL: Alert, oriented, no acute distress; sitting up in the bed MENTAL STATUS: affect appropriate to mood EYES: Extraocular movements intact, no pallor EARS: External ears appear normal, hearing grossly normal NOSE: Normal and patent, no discharge MOUTH: Mucous membranes moist, tongue normal NECK: Supple, no JVD CHEST: Coarse breath sounds HEART: Normal rate, regular rhythm, normal S1 and S2, no audible murmurs ABDOMEN: Soft, nontender NEUROLOGICAL: Alert, oriented, normal speech, no gross motor deficits MUSCULOSKELETAL: No major deformity, no amputation EXTREMITIES: No pedal edema, no clubbing, no cyanosis SKIN: no rash on the exposed area, no cyanosis PSYCHIATRIC: Normal mood, appropriate affect Objective Data Vital Signs Vital Signs: Vital Signs - 24 hr 09/23/23 10:15 09/23/23 10:30 09/23/23 10:45 Temperature 37.7 C H 37.7 C H 37.8 C H Pulse Rate 99 96 101 H Respiratory Rate 19 17 13 Blood Pressure Pulse Oximetry 100 100 94 Oxygen Delivery Oxygen Flow Rate 09/23/23 11:00 09/23/23 11:01 09/23/23 11:15 Temperature 37.9 C H 37.9 C H 38.0 C H Pulse Rate 97 95 98 Respiratory Rate 24 H 29 H 27 H Blood Pressure 109/88 Pulse Oximetry 100 100 100 Oxygen Delivery Oxygen Flow Rate 09/23/23 11:32 09/23/23 12:00 09/23/23 11:45 Temperature 38.1 C H 38.1 C H Pulse Rate 98 102 H Respiratory Rate 42 H 34 H Blood Pressure Pulse Oximetry 100 100 100 Oxygen Delivery High Flow Nasal Cannula Oxygen Flow Rate 6 09/23/23 12:04 09/23/23 12:15 09/23/23 12:30 Temperature 38.3 C H 38.3 C H 38.3 C H Pulse Rate 101 H 101 H 102 H Respiratory Rate 4
[2023-09-24] MEDS: METOPROLOL TARTRATE 12.5 MG TABLET PO ×2 (11:09→21:15)
[2023-09-24] MEDS: levoFLOXacin 750 MG/D5W 150 ML 750 MG/150 ML BAG 100 MG IVPB (11:13)
--- NOTE | 2023-09-24 12:55 | PC.NURSE ---
This patient, Baldemar Uriostegui, was transferred to [facility] on 09/24/23 at 1245. Personal belongings sent with patient. Report given to Dayanna. Appropriate documentation sent with patient.
--- NOTE | 2023-09-24 13:26 | ADMIMU ---
This patient, Baldemar Uriostegui, was admitted to IMU status, and placed in 2 Medical Room 254-01. Patient/family oriented to hospital policies and general routines including ID bracelet, bed and alarms, visiting hours, pain management, procedures, bathroom and other care routines, personal items, smoking policy, room service/diet, and visiting hours. Valuables list has been completed. Information on how to activate the Rapid Response Team has been discussed. Patient/Family are encouraged to report perceived risks to care and to ask questions if they do not understand what they are told or what they should do.
--- NOTE | 2023-09-24 13:26 | PC.NURSE ---
patient arrived to room 254 by wheelchair and at the bedside. upon arrival patient was able to transfer to chair independently with no s/s of syncope or distress. Right groin site clean with no s/s of bleed or hematoma present. VSS, Denies pain. Will continue to monitor status
--- NOTE | 2023-09-24 14:01 | P.PNIM_ITS ---
Progress Note: A&P Assessment and Plan (1) Septic shock: Code(s): A41.9 - Sepsis, unspecified organism; R65.21 - Severe sepsis with septic shock Status: Acute Assessment and Plan: Patient presented to the ED with leukocytosis, tachypnea, tachycardia, hypotension, lactic acidosis, MARY, Hypoxia and heart failure. * Appears to be shock due to pneumonia. * Hypoperfusion of the kidneys causing an MARY. * Trend lactic acid levels: 5.2, 5.6, 4.9, 3.3, 1.9 * IV fluids at 50 per Nephrology recommendations. * Monitor blood pressure. * Oxygen supplementation no longer required * 09/24/23 patient downgraded from ICU to med tele (2) Lobar pneumonia: Code(s): J18.1 - Lobar pneumonia, unspecified organism Status: Acute Assessment and Plan: CTA of the chest revealing widespread pneumonia, worse in the right upper lobe, no pulmonary embolism present. * Patient started on vancomycin, cefepime and doxycycline. * Sputum culture ordered. * Blood cultures positive for strep pneumonia sensitive to Levaquin. * 09/24/23 Rocephin and doxycycline discontinued and Levaquin started. * Patient currently on RA. * Flu COVID and RSV negative. * 09/24/23 repeat blood cultures drawn (3) Acute hypoxic respiratory failure: Code(s): J96.01 - Acute respiratory failure with hypoxia Status: Acute Assessment and Plan: Hypoxia likely secondary to pneumonia * Patient now on room air * ABG revealing metabolic alkalosis with respiratory compensation (4) Elevated troponin: Code(s): R79.89 - Other specified abnormal findings of blood chemistry Status: Acute Assessment and Plan: On presentation to the ED patient experience weakness, syncopal episode and chest pain. * Troponin: 0.13, 0.26, 0.54, 20.5 * Cardiology consulted. * Cardiac catheterization did not reveal any signs of occlusion. (5) Acute kidney failure: Code(s): N17.9 - Acute kidney failure, unspecified Status: Acute Assessment and Plan: Patient presents to ED with a BUN and creatinine of 36/4.3, lactic acid of 5.2 reflux to 5.6. * Patient was given 5 L of fluids in the ED with little improvement of kidney function. * Renal ultrasound ordered and revealed normal kidneys. * Nephrology consulted and they believe likely due to hypoperfusion of the kidneys due to acute heart failure/sepsis * UA negative for infection * Espinosa catheter was placed. * BUN and creatinine improved today to 32/1.7 (6) Syncope and collapse: Code(s): R55 - Syncope and collapse Status: Acute Assessment and Plan: Differential: vasovagal, AK, hypotension, sepsis * Patient was found to be hypotensive on arrival and was given IV boluses * Echocardiogram with EF of 40-45% and normal diastolic function (7) Lactic acidosis: Code(s): E87.20 - Acidosis, unspecified Status: Acute Assessment and Plan: Lactic acid: 5.2, 5.6, 4.9, 3.3, 1.9 * resolved (8) Congestive heart failure: Code(s): I50.9 - Heart failure, unspecified Status: Acute Assessment and Plan: Echocardiogram revealing EF of 40-45%. * BNP of 7000. * Cardiology consulted. * Heart failure likely due to acute cardiac event * Cardiology recommending repeat echocardiogram in 4 weeks Subjective Date/time seen: 09/24/23 14:01 Interval history: Patient fe
--- NOTE | 2023-09-24 14:01 | PM.IMPN ---
Progress Note: A&P Assessment and Plan (1) Septic shock: Code(s): A41.9 - Sepsis, unspecified organism; R65.21 - Severe sepsis with septic shock Status: Acute Assessment and Plan: Patient presented to the ED with leukocytosis, tachypnea, tachycardia, hypotension, lactic acidosis, MARY, Hypoxia and heart failure. Appears to be shock due to pneumonia. Hypoperfusion of the kidneys causing an MARY. Trend lactic acid levels: 5.2, 5.6, 4.9, 3.3, 1.9 IV fluids at 50 per Nephrology recommendations. Monitor blood pressure. Oxygen supplementation no longer required 09/24/23 patient downgraded from ICU to med tele (2) Lobar pneumonia: Code(s): J18.1 - Lobar pneumonia, unspecified organism Status: Acute Assessment and Plan: CTA of the chest revealing widespread pneumonia, worse in the right upper lobe, no pulmonary embolism present. Patient started on vancomycin, cefepime and doxycycline. Sputum culture ordered. Blood cultures positive for strep pneumonia sensitive to Levaquin. 09/24/23 Rocephin and doxycycline discontinued and Levaquin started. Patient currently on RA. Flu COVID and RSV negative. 09/24/23 repeat blood cultures drawn (3) Acute hypoxic respiratory failure: Code(s): J96.01 - Acute respiratory failure with hypoxia Status: Acute Assessment and Plan: Hypoxia likely secondary to pneumonia Patient now on room air ABG revealing metabolic alkalosis with respiratory compensation (4) Elevated troponin: Code(s): R79.89 - Other specified abnormal findings of blood chemistry Status: Acute Assessment and Plan: On presentation to the ED patient experience weakness, syncopal episode and chest pain. Troponin: 0.13, 0.26, 0.54, 20.5 Cardiology consulted. Cardiac catheterization did not reveal any signs of occlusion. (5) Acute kidney failure: Code(s): N17.9 - Acute kidney failure, unspecified Status: Acute Assessment and Plan: Patient presents to ED with a BUN and creatinine of 36/4.3, lactic acid of 5.2 reflux to 5.6. Patient was given 5 L of fluids in the ED with little improvement of kidney function. Renal ultrasound ordered and revealed normal kidneys. Nephrology consulted and they believe likely due to hypoperfusion of the kidneys due to acute heart failure/sepsis UA negative for infection Espinosa catheter was placed. BUN and creatinine improved today to 32/1.7 (6) Syncope and collapse: Code(s): R55 - Syncope and collapse Status: Acute Assessment and Plan: Differential: vasovagal, AL, hypotension, sepsis Patient was found to be hypotensive on arrival and was given IV boluses Echocardiogram with EF of 40-45% and normal diastolic function (7) Lactic acidosis: Code(s): E87.20 - Acidosis, unspecified Status: Acute Assessment and Plan: Lactic acid: 5.2, 5.6, 4.9, 3.3, 1.9 resolved (8) Congestive heart failure: Code(s): I50.9 - Heart failure, unspecified Status: Acute Assessment and Plan: Echocardiogram revealing EF of 40-45%. BNP of 7000. Cardiology consulted. Heart failure likely due to acute cardiac event Cardiology recommending repeat echocardiogram in 4 weeks Subjective Date/time seen: 09/24/23 14:01 Interval history: Patient feeling much better today. He continues to have a cough but shortness of breath is much improved. Discussed with him that we will likely remove Espinosa catheter tomorrow. Repeat blood cultures done today. Patient downgraded from ICU to med [facility]. Antibiotics transitioned from Rocephin and doxy to Levaquin. Exam Narrative: GENERAL: Comfortable, no acute distress HENMT: moist mucous membranes EYES: EOM intact b/l NECK: no lymphadenopathy RESPIRATORY: right lower lobe crackles CARDIO: RRR GI: soft, nontender, bowel sounds pre
[2023-09-24] MEDS: AMITRIPTYLINE HCL 25 MG TABLET 100 MG PO (21:16)
[2023-09-24] MEDS: polyethylene glycoL 3350 17 GM POWD.PACK PO (21:16)
[2023-09-25] VITALS (11 sets, daily range): BP systolic 116–130; BP diastolic 69–81; PULSE 86–103; RESP 16–18; TEMP 36.3–36.8; O2SAT 92–99
[2023-09-25 06:17] LABS: Hematocrit 29.2 % (42.0-52.0); Hemoglobin 10.2 g/dL (14.0-18.0); Mean Corpuscular HGB Conc 34.9 g/dl (32-36); Mean Corpuscular Hemoglobin 29.3 pg (26-34); Mean Corpuscular Volume 83.9 fl (80-100); Mean Platelet Volume 10.8 fl (7.4-10.4); Platelet Count Result 233 k/mm3 (150-375); Red Blood Count 3.48 M/mm3 (4.6-6.20); Red Cell Distribution Width 14.6 % (11.5-14.5); White Blood Count 8.9 K/mm3 (4.5-10.0)
[2023-09-25 06:30] LABS: Alanine Aminotransferase 97 U/L (6-50); Alkaline Phosphatase 413 U/L (38-126); Anion Gap 7 mmol/L (8-16); Aspartate Amino Transferase 86 U/L (17-59); Bilirubin,Total 0.6 mg/dL (0.2-1.3); Blood Urea Nitrogen 24 mg/dL (9-20); Calcium 8.7 mg/dL (8.4-10.2); Carbon Dioxide 25 mmol/L (22-30); Chloride 102 mmol/L (98-107); Estimated CRCL calculation 60 ml/min; Estimated Glomerular Filt Rate 52; Glucose 89 mg/dL (65-110); Magnesium 1.7 mg/dL (1.6-2.3); Phosphorus 3.7 mg/dL (2.5-4.5); Potassium 3.5 mmol/L (3.4-5.0); Sodium 134 mmol/L (137-145)
[2023-09-25] MEDS: MAGNESIUM SULF 2 GM/WATER 50ML 2 GM/50 ML BAG IVPB (08:54)
[2023-09-25] MEDS: METOPROLOL TARTRATE 12.5 MG TABLET PO ×2 (08:54→22:23)
[2023-09-25] MEDS: ENOXAPARIN 40 MG/0.4 ML SYRINGE SUB-Q (08:55)
[2023-09-25] MEDS: ASPIRIN 81 MG ENTERIC TABLET PO (08:55)
--- NOTE | 2023-09-25 09:58 | PM.PNCARD ---
Progress Note: A&P Assessment and Plan (1) Type 2 [place] (myocardial infarction): Code(s): I21.A1 - Myocardial infarction type 2 Status: Acute Assessment and Plan: Significant troponin elevation and ST segment abnormality in the setting of sepsis, pneumonia. No significant obstructive CAD on coronary angiogram. Mild LV systolic dysfunction on echocardiogram. Significant clinical improvement. Not requiring supplemental oxygen. -continue aspirin. -Continue low-dose beta-rosa. -continue to monitor on telemetry for now. -outpatient Cardiology follow-up after hospital discharge. May repeat echocardiogram with Doppler in about 6 weeks to reassess LV systolic function. - cardiology will sign off. Please call with questions. (2) Community acquired pneumonia: Code(s): J18.9 - Pneumonia, unspecified organism Status: Acute Assessment and Plan: Blood cultures positive for strep pneumonia. Appropriate antibiotics as per primary team. (3) MARY (acute kidney injury): Code(s): N17.9 - Acute kidney failure, unspecified Status: Acute Assessment and Plan: Creatinine is improving. Subjective Date/time seen: 09/25/23 09:58 Interval history: Date of service: 09/24/2023 Interval history: Patient is feeling better and is not requiring supplemental oxygen anymore. He has cough with scanty expectoration. He also has epistaxis on blowing nose which she attributes to dryness in the nose from oxygen. Denies chest pain or shortness of breath at present. His coronary angiogram did not show any significant obstructive CAD. Service 09/25/2023: Continues to feel well today. Has a persistent productive cough. Remains on room air today. He denies any chest pain, shortness of breath. Review of Systems Review of Systems: All systems reviewed & are unremarkable except as noted in HPI and below Constitutional: Constitutional: Reports body ache(s), Reports chills, Reports excessive sweating, Reports night sweats and Reports weakness Eyes: Eyes: Denies blurry vision ENT: Reports Normal hearing present Cardiovascular: Cardiovascular: Denies chest pain, Denies pedal edema and Reports dyspnea Respiratory: Respiratory: Reports dyspnea Gastrointestinal: Gastrointestinal: Denies abdominal pain Genitourinary: Genitourinary: Denies hematuria Musculoskeletal: Musculoskeletal: Denies back pain Integumentary/Breasts: Skin/Breast: Denies dry skin Neurologic: Reports Normal hearing present, Denies Abnormal speech present and Reports weakness Psychiatric: Psychiatric: Denies anxiety Endocrine: Endocrine: Reports excessive sweating Hematologic/Lymphatic: Hematologic/Lymphatic: Denies easy bleeding Allergic/Immunologic: Allergic/Immunologic: Denies GI upset with certain foods Exam Const: General: comfortable, no acute distress, alert and awake HENMT: Face/Nose/Sinus: Normal nares present Mouth: Yes moist mucous membranes Eyes: Sclera: sclerae normal Neck: Neck: supple and no JVD Carotids: no bruits Chest: Other: No reproducible chest wall pain to palpation Resp: Auscultation: diminished lung sounds Cardio: Rate: regular rate Rhythm: regular rhythm Heart sounds: no murmurs GI: Inspection: non-distended Auscultation: normal bowel sounds Skin: General skin exam: normal color and no rashes or lesions noted Neuro: Cranial nerves: Yes Normal hearing present Speech: normal speech and No Abnormal speech present Sensory Exam: normal sensation Extrem: General: normal to inspection Psych: Mental Status: mental status grossly normal Affect: normal affect Objective Data Vital Signs Vital Signs: Vital Signs - 24 hr 09/24/23 11:09 09/24/23 12:00 09/24/23 12:00 Temperature 37.7 C H Pulse Rate 99 92 92 Respiratory Rate 28 H Blood Pressure 118/89 Pulse Oximetry 95 Oxygen Delivery Fraction of Inspired Oxygen 09/24/23 15:53 09/24/23 16:00 01
--- NOTE | 2023-09-25 10:53 | P.PNIM_ITS ---
Progress Note: A&P Assessment and Plan (1) Septic shock: Code(s): A41.9 - Sepsis, unspecified organism; R65.21 - Severe sepsis with septic shock Status: Acute Assessment and Plan: Patient presented to the ED with leukocytosis, tachypnea, tachycardia, hypotension, lactic acidosis, MARY, Hypoxia and heart failure. * Appears to be shock due to pneumonia. * Hypoperfusion of the kidneys causing an MARY. -- improving. * Trend lactic acid levels: 5.2, 5.6, 4.9, 3.3, 1.9 * Monitor blood pressure. * Oxygen supplementation no longer required * 09/24/23 patient downgraded from ICU to med tele (2) Lobar pneumonia: Code(s): J18.1 - Lobar pneumonia, unspecified organism Status: Acute Assessment and Plan: CTA of the chest revealing widespread pneumonia, worse in the right upper lobe, no pulmonary embolism present. * Patient started on vancomycin, cefepime and doxycycline. * Sputum culture pending. * Blood cultures positive for strep pneumonia sensitive to Levaquin. * 09/24/23 Rocephin and doxycycline discontinued and Levaquin started. * Patient currently on RA. * Flu COVID and RSV negative. * 09/24/23 repeat blood cultures, no growth to date. (3) Acute hypoxic respiratory failure: Code(s): J96.01 - Acute respiratory failure with hypoxia Status: Acute Assessment and Plan: Hypoxia likely secondary to pneumonia * Patient now on room air * ABG revealing metabolic alkalosis with respiratory compensation (4) Elevated troponin: Code(s): R79.89 - Other specified abnormal findings of blood chemistry Status: Acute Assessment and Plan: On presentation to the ED patient experience weakness, syncopal episode and chest pain. * Troponin: 0.13, 0.26, 0.54, 20.5 * Cardiology consulted. * Cardiac catheterization did not reveal any signs of occlusion. (5) Acute kidney failure: Code(s): N17.9 - Acute kidney failure, unspecified Status: Acute Assessment and Plan: Patient presents to ED with a BUN and creatinine of 36/4.3, lactic acid of 5.2 reflux to 5.6. * Patient was given 5 L of fluids in the ED with little improvement of kidney function. * Renal ultrasound ordered and revealed normal kidneys. * Nephrology consulted and they believe likely due to hypoperfusion of the kidneys due to acute heart failure/sepsis * UA negative for infection. * Espinosa catheter was placed. * BUN and creatinine improved today to 24/1.4. (6) Syncope and collapse: Code(s): R55 - Syncope and collapse Status: Acute Assessment and Plan: Differential: vasovagal, NH, hypotension, sepsis * Patient was found to be hypotensive on arrival and was given IV boluses * Echocardiogram with EF of 40-45% and normal diastolic function * Repeat ECHO in 4 weeks. (7) Lactic acidosis: Code(s): E87.20 - Acidosis, unspecified Status: Acute Assessment and Plan: Lactic acid: 5.2, 5.6, 4.9, 3.3, 1.9 * resolved (8) Congestive heart failure: Code(s): I50.9 - Heart failure, unspecified Status: Acute Assessment and Plan: Echocardiogram revealing EF of 40-45%. * BNP of 7000. * Cardiology consulted. * Heart failure likely due to acute cardiac event * Cardiology recommending repeat echocardiogram in 4 weeks Subjective Date/time seen: 09/25/23 10:53 Interval history: Patient
--- NOTE | 2023-09-25 10:53 | PM.IMPN ---
Progress Note: A&P Assessment and Plan (1) Septic shock: Code(s): A41.9 - Sepsis, unspecified organism; R65.21 - Severe sepsis with septic shock Status: Acute Assessment and Plan: Patient presented to the ED with leukocytosis, tachypnea, tachycardia, hypotension, lactic acidosis, MARY, Hypoxia and heart failure. Appears to be shock due to pneumonia. Hypoperfusion of the kidneys causing an MARY. -- improving. Trend lactic acid levels: 5.2, 5.6, 4.9, 3.3, 1.9 Monitor blood pressure. Oxygen supplementation no longer required 09/24/23 patient downgraded from ICU to med tele (2) Lobar pneumonia: Code(s): J18.1 - Lobar pneumonia, unspecified organism Status: Acute Assessment and Plan: CTA of the chest revealing widespread pneumonia, worse in the right upper lobe, no pulmonary embolism present. Patient started on vancomycin, cefepime and doxycycline. Sputum culture pending. Blood cultures positive for strep pneumonia sensitive to Levaquin. 09/24/23 Rocephin and doxycycline discontinued and Levaquin started. Patient currently on RA. Flu COVID and RSV negative. 09/24/23 repeat blood cultures, no growth to date. (3) Acute hypoxic respiratory failure: Code(s): J96.01 - Acute respiratory failure with hypoxia Status: Acute Assessment and Plan: Hypoxia likely secondary to pneumonia Patient now on room air ABG revealing metabolic alkalosis with respiratory compensation (4) Elevated troponin: Code(s): R79.89 - Other specified abnormal findings of blood chemistry Status: Acute Assessment and Plan: On presentation to the ED patient experience weakness, syncopal episode and chest pain. Troponin: 0.13, 0.26, 0.54, 20.5 Cardiology consulted. Cardiac catheterization did not reveal any signs of occlusion. (5) Acute kidney failure: Code(s): N17.9 - Acute kidney failure, unspecified Status: Acute Assessment and Plan: Patient presents to ED with a BUN and creatinine of 36/4.3, lactic acid of 5.2 reflux to 5.6. Patient was given 5 L of fluids in the ED with little improvement of kidney function. Renal ultrasound ordered and revealed normal kidneys. Nephrology consulted and they believe likely due to hypoperfusion of the kidneys due to acute heart failure/sepsis UA negative for infection. Espinosa catheter was placed. BUN and creatinine improved today to 24/1.4. (6) Syncope and collapse: Code(s): R55 - Syncope and collapse Status: Acute Assessment and Plan: Differential: vasovagal, FL, hypotension, sepsis Patient was found to be hypotensive on arrival and was given IV boluses Echocardiogram with EF of 40-45% and normal diastolic function Repeat ECHO in 4 weeks. (7) Lactic acidosis: Code(s): E87.20 - Acidosis, unspecified Status: Acute Assessment and Plan: Lactic acid: 5.2, 5.6, 4.9, 3.3, 1.9 resolved (8) Congestive heart failure: Code(s): I50.9 - Heart failure, unspecified Status: Acute Assessment and Plan: Echocardiogram revealing EF of 40-45%. BNP of 7000. Cardiology consulted. Heart failure likely due to acute cardiac event Cardiology recommending repeat echocardiogram in 4 weeks Subjective Date/time seen: 09/25/23 10:53 Interval history: Patient feeling much better. If blood cultures remain negative patient will likely to able to discharge tomorrow. He denies SOB, CP, N/V/D. Espinosa catheter has been discontinued and he is urinating without difficulty. Exam Narrative: GENERAL: Comfortable, no acute distress HENMT: moist mucous membranes EYES: EOM intact b/l NECK: no lymphadenopathy RESPIRATORY: clear to auscultation. CARDIO: RRR GI: soft, nontender, bowel sounds present SKIN: no rashes EXTREMITIES: no edema, redness or tenderness Objective Data Vital Sig
--- NOTE | 2023-09-25 10:55 | PM.PNNEP ---
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 contrast exposure noted but this was done post-admission (CTA on 09/21 and cardiac cath today) evaluation to date noted: renal ultrasound unremarkable CPK mildy elevated but not enough to affect kidney function urine electrolytes prerenal urine eosinophils UA with blod and protein follow trend of repeat labs and UOP (2) Septic shock: Code(s): A41.9 - Sepsis, unspecified organism; R65.21 - Severe sepsis with septic shock Status: Acute Assessment and Plan: presentation with hypotension, elevated WBC, and lactic acidosis felt to be secondary to extensive pneumonia in association with positive blood culture s/p IVF resuscitation BP remain soft but with adequate MAP - no need for vasopressor therapy as of yet negative for influenza/RSV/COVID blood cultures with Strep pneumoniae - follow repeat cultures on antibiotics (3) Acute hypoxic respiratory failure: Code(s): J96.01 - Acute respiratory failure with hypoxia Status: Acute Assessment and Plan: clinically improving felt to be due to volume overload and pneumonia recent cardiac issues and drop in EF by Echo may be playing a role as well oxygen support as needed follow urine output (as remains at risk for worsening volume overload due to kidney dysfunction (4) NSTEMI (non-ST elevated myocardial infarction): Code(s): I21.4 - Non-ST elevation (NSTEMI) myocardial infarction Status: Acute Assessment and Plan: elevated troponins noted Echo results reviewed s/p cardiac catheterization: no evidence of significant coronary artery disease felt to be a type 2 NV from demand ischemia secondary to sepsis/shock Cardiology following (5) Community acquired pneumonia: Code(s): J18.9 - Pneumonia, unspecified organism Status: Acute Assessment and Plan: as noted by imaging to date (quite extensive by CT of chest) on antibiotis follow respiratory status closely (6) Lactic acidosis: Code(s): E87.20 - Acidosis, unspecified Status: Acute Assessment and Plan: resolved as noted on admission not much improvement s/p IVF resuscitation felt to be secondary to sepsis and hypotension on admission (7) Anemia: Code(s): D64.9 - Anemia, unspecified Status: Acute Assessment and Plan: likely due to MARY and acute illness no evidence of blood loss follow trend of H/H Not much else to add from renal perspective -- will continue to follow intermittently. Subjective Date/time seen: 09/25/23 10:55 Interval history: Follow-up for acute kidney injury/acute renal failure. He continues to do well in general; respiratory status/breathing is improving and renal function also getting better by trend of labs in association with adequate urine output; no apparent distress noted at the time of my visit. Exam Narrative: General: WD/WN male in NAD Heart: normal S1 and S2; no rub Lungs: clear to auscultation anteriorly Abdomen: soft, nontender, nondistended, positive bowel sounds Extremities: no cyanosis or clubbing; no edema Skin: warm and intact Objective Data Vital Signs Vital Signs: Vital Signs Temp Pulse Resp BP Pulse Ox O2 Del Method FiO2 09/25/23 09:24 97.8 F 94 18 123/69 96 09/25/23 08:00 92 Ro
--- NOTE | 2023-09-25 10:55 | P.PNNP_ITS ---
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 * contrast exposure noted but this was done post-admission (CTA on 09/21 and cardiac cath today) * evaluation to date noted: * renal ultrasound unremarkable * CPK mildy elevated but not enough to affect kidney function * urine electrolytes prerenal * urine eosinophils * UA with blod and protein * follow trend of repeat labs and UOP (2) Septic shock: Code(s): A41.9 - Sepsis, unspecified organism; R65.21 - Severe sepsis with septic shock Status: Acute Assessment and Plan: * presentation with hypotension, elevated WBC, and lactic acidosis * felt to be secondary to extensive pneumonia in association with positive blood culture * s/p IVF resuscitation * BP remain soft but with adequate MAP - no need for vasopressor therapy as of yet * negative for influenza/RSV/COVID * blood cultures with Strep pneumoniae - follow repeat cultures * on antibiotics (3) Acute hypoxic respiratory failure: Code(s): J96.01 - Acute respiratory failure with hypoxia Status: Acute Assessment and Plan: * clinically improving * felt to be due to volume overload and pneumonia * recent cardiac issues and drop in EF by Echo may be playing a role as well * oxygen support as needed * follow urine output (as remains at risk for worsening volume overload due to kidney dysfunction (4) NSTEMI (non-ST elevated myocardial infarction): Code(s): I21.4 - Non-ST elevation (NSTEMI) myocardial infarction Status: Acute Assessment and Plan: * elevated troponins noted * Echo results reviewed * s/p cardiac catheterization: * no evidence of significant coronary artery disease * felt to be a type 2 MA from demand ischemia secondary to sepsis/shock * Cardiology following (5) Community acquired pneumonia: Code(s): J18.9 - Pneumonia, unspecified organism Status: Acute Assessment and Plan: * as noted by imaging to date (quite extensive by CT of chest) * on antibiotis * follow respiratory status closely (6) Lactic acidosis: Code(s): E87.20 - Acidosis, unspecified Status: Acute Assessment and Plan: * resolved * as noted on admission * not much improvement s/p IVF resuscitation * felt to be secondary to sepsis and hypotension on admission (7) Anemia: Code(s): D64.9 - Anemia, unspecified Status: Acute Assessment and Plan: * likely due to MARY and acute illness * no evidence of blood loss * follow trend of H/H Not much else to add from renal perspective -- will continue to follow intermittently. Subjective Date/time seen: 09/25/23 10:55 Interval history: Follow-up for acute kidney injury/acute renal failure. He continues to do well in general; respiratory status/breathing is improving and renal function also getting better by trend of labs in association with adequate urine o
[2023-09-25] MEDS: levoFLOXacin 750 MG/D5W 150 ML 750 MG/150 ML BAG 100 MG IVPB (11:44)
[2023-09-25] MEDS: polyethylene glycoL 3350 17 GM POWD.PACK PO (22:23)
[2023-09-25] MEDS: AMITRIPTYLINE HCL 25 MG TABLET 100 MG PO (22:23)
[2023-09-26] VITALS: BP 120/78; PULSE 93; PULSE 94; RESP 17; TEMP 36.4; O2SAT 97
[2023-09-26 03:46] VITALS: BP 108/65; PULSE 98; RESP 18; TEMP 36.7; O2SAT 92
[2023-09-26 04:00] VITALS: PULSE 95
[2023-09-26 06:07] LABS: Hemoglobin 10.2 g/dL (14.0-18.0); Mean Corpuscular Hemoglobin 29.4 pg (26-34); Mean Corpuscular Volume 86.5 fl (80-100); Mean Platelet Volume 10.7 fl (7.4-10.4); Platelet Count Result 285 k/mm3 (150-375); Red Blood Count 3.47 M/mm3 (4.6-6.20); Red Cell Distribution Width 14.8 % (11.5-14.5); White Blood Count 9.4 K/mm3 (4.5-10.0)
[2023-09-26 06:15] LABS: Alanine Aminotransferase 116 U/L (6-50); Albumin Level 2.9 g/dL (3.5-5.1); Alkaline Phosphatase 375 U/L (38-126); Anion Gap 8 mmol/L (8-16); Aspartate Amino Transferase 104 U/L (17-59); Bilirubin,Total 0.6 mg/dL (0.2-1.3); Blood Urea Nitrogen 20 mg/dL (9-20); Calcium 8.4 mg/dL (8.4-10.2); Carbon Dioxide 26 mmol/L (22-30); Chloride 101 mmol/L (98-107); Estimated CRCL calculation 70 ml/min; Estimated Glomerular Filt Rate > 60; Glucose 103 mg/dL (65-110); Magnesium 1.4 mg/dL (1.6-2.3); Phosphorus 4.3 mg/dL (2.5-4.5); Potassium 3.9 mmol/L (3.4-5.0); Sodium 135 mmol/L (137-145)
[2023-09-26 08:00] VITALS: PULSE 90
--- NOTE | 2023-09-26 08:07 | PM.DS ---
DS: Admitting Diagnosis Discharge Date 09/26/23 Admitting Diagnosis Pneumonia, septic shock, MARY, elevated trop, DS: Discharge Diagnosis Discharge Diagnosis (1) Septic shock: Code(s): A41.9 - Sepsis, unspecified organism; R65.21 - Severe sepsis with septic shock Status: Acute (2) Lobar pneumonia: Code(s): J18.1 - Lobar pneumonia, unspecified organism Status: Acute (3) Acute hypoxic respiratory failure: Code(s): J96.01 - Acute respiratory failure with hypoxia Status: Acute (4) Elevated troponin: Code(s): R79.89 - Other specified abnormal findings of blood chemistry Status: Acute (5) Acute kidney failure: Code(s): N17.9 - Acute kidney failure, unspecified Status: Acute (6) Syncope and collapse: Code(s): R55 - Syncope and collapse Status: Acute (7) Lactic acidosis: Code(s): E87.20 - Acidosis, unspecified Status: Acute (8) Congestive heart failure: Code(s): I50.9 - Heart failure, unspecified Status: Acute DS: Summary Hospital Course Hospital Course: 58-year-old male with a past medical history hypertension that presented to the ED on 09/21/2023 due to syncopal episode, chest pain and weakness. Patient arrived to the chest pain patient was thought to have a STEMI but this was ruled out although his troponins were mildly elevated when he presented to the ED. CTA of the chest revealed a diffuse pneumonia worse in the right upper lobe. No PE was found. He was also found to be hypoxic on 10 L of oxygen. He was in transition to BiPAP. Patient had developed the symptoms 1 day prior to presentation to the ED. Preliminary workup significant for creatinine of 4.3, lactic acid of 5.2 and he was started on broad-spectrum antibiotics of vancomycin, cefepime and doxycycline. He was admitted to the IMU Treatment of multi organ system failure, pneumonia and septic shock. Repeat labs showed creatinine of 4.2 lactic of 5.6. Patient was given 5 L of IV fluids in the ED. Due to non improving labs nephrology was consulted. Troponins trended at 0.13, 0.26, 0.54, 20.5. Cardiology consulted and recommended stat echocardiogram showing an EF of 40-45%. Due to troponin of 20.5 patient was taken into the feed mill lab technician to rule out ischemic event. The catheterization procedure did not show any sign of ischemia are or blockage. Cardiology was concerned that patient possibly may need transfer due to Possibility worsening condition. This was discussed with mold finisher here [facility]. Patient's blood cultures came back positive for Streptococcus pneumoniae. I discussed the case with mold finisher and he agreed that patient be moved to the ICU. After cardiac catheterization patient was transferred to the ICU under surveillance of mold finisher. After moving to the ICU patient did improve and transfer was rediscussed with patient and his and they were in agreement to not transfer due to the improvement of patient's condition. Patient required increased oxygen Supplementation for approximately 2 days. He was eventually able to be put on room air. Patient was transitioned out of the ICU on 09/23/2023. urinary catheter was placed and after urinary catheter placement patient did have improvement in kidney function. Patient's blood cultures were sensitive to Levaquin and patient was transitioned to IV Levaquin. Vancomycin, cefepime and doxycycline were then discontinued. Repeat blood cultures were drawn and after 48 hours patient's blood cultures did not have any growth. Patient was discharged home on p.o. Levaquin for total of 10 days of antibiotic therapy. Patient's kidney function improved to a BUN creatinine of 20/1.2. Patient's white count now within normal limits. Will order repeat labs in 1 week. All his labs and vital signs are stable he is medically clear for discharge at this time. Time Spent with Patient Time attestation: Total time spent providing and/
[2023-09-26 08:24] VITALS: PULSE 90
[2023-09-26] MEDS: ENOXAPARIN 40 MG/0.4 ML SYRINGE SUB-Q (08:24)
[2023-09-26] MEDS: METOPROLOL TARTRATE 12.5 MG TABLET PO (08:24)
[2023-09-26] MEDS: MAGNESIUM SULFATE 3GM/D5W100ML 3 GM/100 ML BAG IVPB (08:24)
[2023-09-26] MEDS: ASPIRIN 81 MG ENTERIC TABLET PO (08:24)
--- NOTE | 2023-09-26 08:35 | PC.NURSE ---
IV infiltrated while attempting to give magnesium IV. Patient to D/C home today, will call hospitalist and request PO
[2023-09-26 10:47] LABS: Albumin 2.9 g/dL (3.8-4.8); Alpha 1 Globulin 0.4 g/dL (0.2-0.3); Alpha 2 Globulin 0.7 g/dL (0.5-0.9); Beta 1 Globulin 0.3 g/dL (0.4-0.6); Gamma Globulin 0.5 g/dL (0.8-1.7)
[2023-09-26 23:08] LABS: Creatinine, Random Urine 141 mg/dL (20-320); Total Protein/Creatinine Ratio 504 mg/g creat (25-148)
--- NOTE | 2023-10-05 11:22 | PC.NURSE ---
Blood cultures are negative.
--- NOTE | 2023-10-10 13:54 | IVDEFINITY ---
Prior to administration of IV Definity the patient was educated on the risks and benefits of the imaging enhancing agent including potential adverse side effects. The patient verbalized understanding. Allergies were verified. No exclusion criteria were identified and at least one of the following inclusion criteria were met: 1) physician request, 2) patient technically difficult to image (per the [place] [employer]ocardi[employer] guidelines of two or more segments not discernable within the apical view), or 3) questionable left ventricular function. ?
== END 2023-09-26 10:55 | disposition home or self-care (01) | DRG 871 ==
LOC: ANHED 19:57 → ANHIMU 09-22 02:08 → ANHICU 09-22 21:36 → ANH2MED 09-25 08:17 → ANHICU 09-27 10:59 → ANHIMU 09-27 10:59
PROVIDERS: Internal Medicine; Internal Medicine Cardiovascular Disease; Internal Medicine Nephrology; Admitting Provider Internal Medicine; Emergency Provider Emergency Medicine; Visit Provider Internal Medicine Critical Care Medicine
PROC: 4A023N7 Measurement of Cardiac Sampling and Pressure, Left Heart, Percutaneous Approach (ICD-10-PCS; CPT 93452; principal; 2023-09-22 14:00)
PROC: 4A023N7 Measurement of Cardiac Sampling and Pressure, Left Heart, Percutaneous Approach (ICD-10-PCS; 2023-09-22 14:00)
DX: A40.3 Sepsis due to Streptococcus pneumoniae (principal); I21.A1 Myocardial infarction type 2; J18.9 Pneumonia, unspecified organism; J96.01 Acute respiratory failure with hypoxia; R65.21 Severe sepsis with septic shock; N17.9 Acute kidney failure, unspecified; I11.0 Hypertensive heart disease with heart failure; I50.9 Heart failure, unspecified; D64.9 Anemia, unspecified; Z20.822 Contact with and (suspected) exposure to COVID-19
CPT/HCPCS: 36415; 36600; 71045; 71275; 76775; 80048; 80053; 80202; 81001; 81050; 82375; 82550; 82565; 82570; 82805; 83050; 83605; 83690; 83735; 83880; 84100; 84155; 84156; 84165; 84166; 84300; 84443; 84484; 84540; 85025; 85027; 85610; 85730; 85999; 86706; 87040; 87070; 87147; 87181; 87186; 87205; 87340; 87637; 87641; 93005; 93458; 94002; 94640; 94667; 96361; 96365; 96366; 96367; 97161; 97165; 99291; A9270; C1760; C1887; C1894; C8929; G0269; J0692; J0696; J1644; J1650; J1956; J2250; J2543; J3010; J3370; J3475; J7030; J7040; P9047; Q9957; Q9967

== ENCOUNTER 2023-10-27 13:21 | Emergency (ER) | payer BC, SELFPAY ==
[2023-10-27 13:30] VITALS: BP 112/80; PULSE 93; RESP 18; TEMP 36.8; O2SAT 100
[2023-10-27 14:21] LABS: Influenza A QL RT-PCR Negative (Negative); Influenza B QL RT-PCR Negative (Negative); RSV RNA, RT-PCR Negative (Negative); SARS-CoV-2 RNA PCR Positive (Negative)
[2023-10-27 15:23] VITALS: O2SAT 99
--- NOTE | 2023-10-27 16:45 | ED.GENADULT ---
HPI - General Adult General Chief complaint: Upper Respiratory Infection Stated complaint: COIVD symtpoms Time Seen by Provider: 10/27/23 15:57 History of Present Illness HPI narrative: Patient is a 58-year-old male who presents to the emergency department this afternoon due to concern for COVID as his did test positive for COVID. Patient states that a few months ago he was admitted here for pneumonia, sepsis and kidney injury and was concerned about his cough and shortness of breath leading to pneumonia. Patient states that his symptoms started yesterday and has not had any fevers. Symptoms include mild shortness of breath and a cough. Patient called his PCP and due to patient's history of a pneumonia, PCP recommended that he comes to the emergency department for further evaluation and for Paxlovid. Patient denies any chest pain, nausea, vomiting, abdominal pain, dysuria, hematuria, constipation, diarrhea, melena, hematochezia, fevers or chills. Patient also denies any headaches, dizziness, lightheadedness, blurry visions, focal weakness, numbness and or tingling. There are no other modifying, alleviating, or precipitating factors at this time. Related Data Home Medications Medication Instructions Recorded Confirmed amitriptyline 100 mg tablet 100 mg PO HS 09/22/23 09/22/23 amlodipine 10 mg tablet 10 mg PO DAILY 09/22/23 09/22/23 polyethylene glycol 3350 17 gram 17 g PO HS 09/22/23 09/22/23 oral powder packet (Miralax) Allergies Allergy/AdvReac Type Severity Reaction Status Date / Time No Known Allergies Allergy Verified 09/21/23 19:05 Review of Systems Review of Systems: All systems are reviewed and are negative unless stated otherwise in the HPI. [facility] Past Medical History Medical History Hypertension Family History Family History Father Parkinson disease Social History Social History (Updated 09/22/23 @ 15:26 by González Hernandez MD) Social History: Patient smoked a long time ago and has not smoked for last 10 years. He does ingest marijuana edibles. Takes alcohol occasionally denies any other drug usage at this time. Denies any history of IV drug use Smoking status: Never smoker Second hand tobacco smoke exposure: No Alcohol intake: never Substance use: never Do You Feel Safe in your Home?: Yes Lack of Transportation: No Lack of Food: Never True Current Housing: I Have Housing Concerned About Future Housing: No Difficulty Paying Gas/Electric Bills: No Difficulty Paying for Meds: No Currently Unemployed: No Education: Master's Degree or Higher Difficulty w/ Childcare or Family Care: No Spiritual care concerns: No Exam Narrative: General: Alert, awake, afebrile, in no acute distress. HEENT: PERRL, no rhinorrhea, no post nasal drip, oropharynx clear. Neck: Trachea midline, no JVD, no lymphadenopathy. Cardiovascular: Regular rate and rhythm, no murmurs, rubs or gallops, no peripheral edema. Respiratory: Clear to auscultation bilaterally, no tachypnea, no wheezing, no rhonchi, no rubs, no respiratory distress, mild cough. Abdomen: Soft, nontender, nondistended, no rebound, no guarding, no peritoneal signs. Musculoskeletal: No joint swelling or deformity, normal muscle tone. Skin: No rashes or petechia, no signs of infection. Psychiatric: Alert and oriented, normal behavior and judgment for situation. Neurological: Alert and oriented to person, place, and time. Follows all commands. No focal deficits, speech is clear and fluent. Course Vital Signs Vital signs: Vital Signs Temperature 98.3 F 10/27/23 13:30 Pulse Rate 93 10/27/23 13:30 Respiratory Rate 18 10/27/23 13:30 Blood Pressure 112/80 10/27/23 13:30 Pulse Oximetry 100 10/27/23 13:30 Oxygen Delivery Room Air 10/27/23 13:30 Temperature 98.3 F 10/27/23 13:30 Pulse Rat
[2023-10-27 16:52] VITALS: BP 119/85; PULSE 88; RESP 18; O2SAT 96
== END 2023-10-27 16:53 | disposition home or self-care (01) ==
PROVIDERS: Emergency Provider Emergency Medicine; PCP Family Medicine
DX: U07.1 COVID-19 (principal); J06.9 Acute upper respiratory infection, unspecified; I10 Essential (primary) hypertension; Z87.891 Personal history of nicotine dependence; Z87.01 Personal history of pneumonia (recurrent); Z79.82 Long term (current) use of aspirin
CPT/HCPCS: 87637; 99283

== ENCOUNTER 2024-02-05 01:23 | Day surgery (SDC) | payer BC, SELFPAY ==
[2024-01-19 14:13] VITALS: BMI 26.3
[2024-02-05 07:13] VITALS: BP 152/98; PULSE 81; RESP 18; TEMP 36.1; O2SAT 100
[2024-02-05] MEDS: LACTATED RINGERS 1,000 ML 150 ML IV CONT (07:23)
--- NOTE | 2024-02-05 08:06 | WPDANESEPPF ---
Anes - Initial Pre Proc Eval Procedure: Operation Date: 02/05/24 08:30 Proposed Procedures p Screening Colonoscopy - Todd Torres MD Date/Time: 02/05/24 08:06 Surgeon: Todd Torres MD Pre Op Diagnosis: Neoplasm screening Patient Data Age: 58 Gender: M Height: 1.88 m Weight: 97.3 kg Last Vital Signs Temp 96.9 F L 02/05/24 07:13 Pulse 81 02/05/24 07:13 Resp 18 02/05/24 07:13 BP 152/98 H 02/05/24 07:13 Pulse Ox 100 02/05/24 07:13 O2 Del Method Room Air 02/05/24 07:13 Allergies Allergy/AdvReac Type Severity Reaction Status Date / Time No Known Allergies Allergy Verified 02/05/24 07:12 Home Medications Medication Instructions Recorded Confirmed Type amlodipine 10 mg tablet 5 mg PO DAILY 09/22/23 01/19/24 History polyethylene glycol 3350 17 gram 17 g PO HS 09/22/23 01/19/24 History oral powder packet (Miralax) aspirin 81 mg tablet,delayed 81 mg PO QAM #30 tabs 09/26/23 01/19/24 Rx release metoprolol tartrate 25 mg tablet 12.5 mg PO BID #30 tabs 09/26/23 01/19/24 Rx Patient hx anesthesia problems: none Family hx anesthesia problems: none Results Review: All pre-operative results and documents have been reviewed as part of the pre-operative evaluation. [facility] Past Medical History Medical History Hypertension Family History Family History Father Parkinson disease Social History Social History (Updated 09/22/23 @ 15:26 by González Hernandez MD) Social History: Patient smoked a long time ago and has not smoked for last 10 years. He does ingest marijuana edibles. Takes alcohol occasionally denies any other drug usage at this time. Denies any history of IV drug use Smoking status: Never smoker Second hand tobacco smoke exposure: No Alcohol intake: never Alcohol use details: Rarely Substance use: current Substance use type: marijuana Other substance usage details: 2 to 3x a week Do You Feel Safe in your Home?: Yes Lack of Transportation: No Lack of Food: Never True Current Housing: I Have Housing Concerned About Future Housing: No Difficulty Paying Gas/Electric Bills: No Difficulty Paying for Meds: No Currently Unemployed: No Education: Master's Degree or Higher Difficulty w/ Childcare or Family Care: No Living arrangements: other Additional living arrangements comments: with sp Spiritual care concerns: No Anes - Eval Final PreProcedure Day of Procedure 02/05/24 08:06 Patient weight: normal Heart: regular rate and rhythm Lungs: clear to auscultation Airway: Mallampati scale class II Neurological: alert and oriented Last oral intake: >/= 8 hours ASA classification: III Emergent: no Anesthetic plan: proceed Anesthesia type and monitoring: general GIVS and standard monitoring Results Review: All pre-operative results and documents have been reviewed as part of the pre-operative evaluation. Informed Consent: The patient's anesthetic plan and its attendant risks and benefits were discussed with the patient/family/POA. Questions were solicited and answers provided to the satisfaction of the patient/family/POA.
--- NOTE | 2024-02-05 08:23 | PM.HPGS ---
History of Present Illness History of Present Illness Consent: Risks, benefits, and alternatives have been discussed and questions answered. Patient agrees to proceed with procedure. Chief complaint: Neoplasm screening Narrative: Baldemar Uriostegui is a 58 year old male here for colonoscopy, had polyps in the past, last one about 3 years ago Review of Systems Review of Systems: All systems reviewed & are unremarkable except as noted in HPI and below PMFSH Past Medical History Medical History (Updated 02/05/24 @ 08:24 by Todd Torres MD) Colon polyp Hypertension Family History Family History Father Parkinson disease Social History Social History (Updated 09/22/23 @ 15:26 by González Hernandez MD) Social History: Patient smoked a long time ago and has not smoked for last 10 years. He does ingest marijuana edibles. Takes alcohol occasionally denies any other drug usage at this time. Denies any history of IV drug use Smoking status: Never smoker Second hand tobacco smoke exposure: No Alcohol intake: never Alcohol use details: Rarely Substance use: current Substance use type: marijuana Other substance usage details: 2 to 3x a week Do You Feel Safe in your Home?: Yes Lack of Transportation: No Lack of Food: Never True Current Housing: I Have Housing Concerned About Future Housing: No Difficulty Paying Gas/Electric Bills: No Difficulty Paying for Meds: No Currently Unemployed: No Education: Master's Degree or Higher Difficulty w/ Childcare or Family Care: No Living arrangements: other Additional living arrangements comments: with sp Spiritual care concerns: No Meds Home Medications and Allergies Home Medications Medication Instructions Recorded Confirmed Type amlodipine 10 mg tablet 5 mg PO DAILY 09/22/23 01/19/24 History polyethylene glycol 3350 17 gram 17 g PO HS 09/22/23 01/19/24 History oral powder packet (Miralax) aspirin 81 mg tablet,delayed 81 mg PO QAM #30 tabs 09/26/23 01/19/24 Rx release metoprolol tartrate 25 mg tablet 12.5 mg PO BID #30 tabs 09/26/23 01/19/24 Rx Allergies Allergy/AdvReac Type Severity Reaction Status Date / Time No Known Allergies Allergy Verified 02/05/24 07:12 Vital Signs Vital Signs - 24 hr 02/05/24 07:13 Temperature 96.9 F L Pulse Rate 81 Respiratory Rate 18 Blood Pressure 152/98 H Pulse Oximetry 100 Oxygen Delivery Room Air Exam Const: General: comfortable and no acute distress HENMT: Face/Nose/Sinus: Normal nares present Eyes: General: appearance normal, both eyes and all related structures Neck: Neck: no JVD Resp: Auscultation: clear to auscultation bilaterally Cardio: Rate: regular rate Rhythm: regular rhythm GI: Inspection: non-distended GI Palp: Yes Soft to palpation Skin: General skin exam: normal color Neuro: General: gait normal Speech: normal speech Extrem: General: normal to inspection Psych: Mental Status: mental status grossly normal Assessment and Plan Assessment and plan (1) Colon polyp: Code(s): K63.5 - Polyp of colon Status: Acute Assessment and Plan: colonoscopy
[2024-02-05 08:41] VITALS: BP 110/76; PULSE 70; RESP 18; O2SAT 100
[2024-02-05 08:50] VITALS: BP 113/76; PULSE 63; RESP 18; O2SAT 99
[2024-02-05 09:01] VITALS: BP 118/79; PULSE 68; RESP 18; O2SAT 100
== END 2024-02-05 09:05 | disposition home or self-care (01) ==
PROVIDERS: PCP Family Medicine; Visit Provider Internal Medicine Gastroenterology
PROC: 0DJD8ZZ Inspection of Lower Intestinal Tract, Via Natural or Artificial Opening Endoscopic (ICD-10-PCS; CPT 45378; principal; 2024-02-05 08:30)
DX: Z12.11 Encounter for screening for malignant neoplasm of colon (principal); K64.8 Other hemorrhoids; I10 Essential (primary) hypertension; F12.90 Cannabis use, unspecified, uncomplicated; Z79.82 Long term (current) use of aspirin; Z86.010 Personal history of colon polyps; Z87.891 Personal history of nicotine dependence
CPT/HCPCS: 45378; J2704; J7120

== ENCOUNTER 2024-04-11 06:02 | Emergency (ER) | payer BC, SELFPAY ==
[2024-04-11] VITALS (23 sets, daily range): BP systolic 121–140; BP diastolic 84–99; PULSE 57–72; RESP 13–24; TEMP 36.3; O2SAT 95–100
--- NOTE | ~2024-04-11 | XR_ITS ---
EXAMINATION: XR chest 1V portable DATE: 04/11/2024 06:54 INDICATION: Syncopal episode TECHNIQUE: frontal view of the chest was obtained. COMPARISON: Chest radiograph dated 09/23/23 FINDINGS: The lungs are clear with no focal airspace opacities, pulmonary edema, pleural effusion or pneumothor ax. The cardiomediastinal silhouette is normal. Visualized bones and soft tissues are unremarkable. IMPRESSION: 1. No acute cardiopulmonary disease. Reviewed, dictated and finalized at location A.
--- NOTE | 2024-04-11 06:16 | ECG_ITS ---
Test Date: 2024-04-11 06:18:46 Measurements Intervals [place] Rate: 59 P: 48 OH: 180 QRS: 32 QRSD: 97 T: 46 QT: 394 QTc: 393 Interpretive Statements SINUS BRADYCARDIA BORDERLINE ECG No previous ECG available for comparison Electronically Signed On 04-11-2024 06:19:39 CDT by Ned Fields D.O.
[2024-04-11 06:25] LABS: Basophils Absolute Auto 0.1 K/mm3 (0.0-0.1); Basophils Percent Auto 0.7 % (0.2-1.2); Eosinophils Absolute Auto 0.3 K/mm3 (0-0.3); Hematocrit 41.4 % (42.0-52.0); Hemoglobin 14.1 g/dL (14.0-18.0); Immature Granulocyte Absolute 0.03 K/mm3 (0.00-0.031); Immature Granulocyte Percent A 0.3 % (0-0.5); Lymphocytes Absolute Auto 4.54 K/mm3 (0.9-3.2); Lymphocytes Percent Auto 52.2 % (18.3-44.2); Mean Corpuscular HGB Conc 34.1 g/dl (32-36); Mean Corpuscular Volume 88.1 fl (80-100); Monocytes Absolute Auto 0.8 K/mm3 (0.1-0.6); Monocytes Percent Auto 8.7 % (2.6-8.5); Neutrophils Percent Auto 35.1 % (45.5-73.1); Platelet Count Result 313 k/mm3 (150-375); Red Cell Distribution Width 13.2 % (11.5-14.5); White Blood Count 8.7 K/mm3 (4.5-10.0)
[2024-04-11 06:36] LABS: Alanine Aminotransferase 33 U/L (6-50); Albumin Level 4.2 g/dL (3.5-5.1); Alkaline Phosphatase 55 U/L (38-126); Anion Gap 11 mmol/L (4-12); Aspartate Amino Transferase 29 U/L (17-59); Bilirubin,Total 0.5 mg/dL (0.2-1.3); Blood Urea Nitrogen 20 mg/dL (9-20); Calcium 9.8 mg/dL (8.4-10.2); Carbon Dioxide 23 mmol/L (22-30); Chloride 102 mmol/L (98-107); Estimated CRCL calculation 65 ml/min; Estimated Glomerular Filt Rate 57; Glucose 111 mg/dL (65-110); Potassium 3.8 mmol/L (3.4-5.0); Sodium 136 mmol/L (137-145)
--- NOTE | 2024-04-11 07:23 | ED.DIZZY ---
HPI - Dizziness General Chief Complaint: Syncope Stated Complaint: syncope Time Seen by Provider: 04/11/24 06:55 History of Present Illness HPI Narrative: 58-year-old male presenting to the emergency department for evaluation for having a syncopal episode this morning. Patient was in the bathroom felt lightheaded and dizzy and patient's was able have some sit down on the toilet and while on the toilet he did have loss of consciousness. Patient's is able to lower him to the for and patient did not sustain any injury. states that while he was on consult as she called 911 while on left fall with EMS the patient did awake. She suspects he was unconscious for 40 seconds to 1 minute. Upon arrival emergency department patient states he still feels weak and tired. Patient reports he had sepsis pneumonia CHF and multiple episodes of syncope over the winter. Patient states he did have follow-up was cardiology yesterday and had no complaints. Patient does have some pending outpatient workup. Patient follows up with Dr. Matthews for cards. Related Data Home Medications Medication Instructions Recorded Confirmed amlodipine 10 mg tablet 5 mg PO DAILY 09/22/23 01/19/24 polyethylene glycol 3350 17 gram 17 g PO HS 09/22/23 01/19/24 oral powder packet (Miralax) Allergies Allergy/AdvReac Type Severity Reaction Status Date / Time No Known Allergies Allergy Verified 02/05/24 07:12 Review of Systems Review of Systems: All systems reviewed & are unremarkable except as noted in HPI and below PMFSH Past Medical History Medical History (Updated 04/11/24 @ 11:00 by Shayne Carlin MD) Colon polyp Hypertension Family History Family History Father Parkinson disease Social History Social History (Updated 09/22/23 @ 15:26 by González Hernandez MD) Social History: Patient smoked a long time ago and has not smoked for last 10 years. He does ingest marijuana edibles. Takes alcohol occasionally denies any other drug usage at this time. Denies any history of IV drug use Smoking status: Never smoker Second hand tobacco smoke exposure: No Alcohol intake: never Alcohol use details: Rarely Substance use: current Substance use type: marijuana Other substance usage details: 2 to 3x a week Do You Feel Safe in your Home?: Yes Lack of Transportation: No Lack of Food: Never True Current Housing: I Have Housing Concerned About Future Housing: No Difficulty Paying Gas/Electric Bills: No Difficulty Paying for Meds: No Currently Unemployed: No Education: Master's Degree or Higher Difficulty w/ Childcare or Family Care: No Living arrangements: other Additional living arrangements comments: with sp Spiritual care concerns: No Exam Narrative: APPEARANCE: Tired appearing HEAD: normocephalic, atraumatic. EYES: PERRLA/EOMI, conjunctivae clear. NOSE: Normal no drainage EARS:TMS clear with good light reflex. THROAT: Pharynx clear, no exudate. NECK: Supple. No adenopathy, no masses. RESPIRATORY: Airway patent, respirations nonlabored. Clear to auscultation bilaterally, no rales, rhonchi, wheezing. CARDIOVASCULAR: Regular rate and rhythm without murmurs rubs or gallops. ABDOMINAL: Soft, nontender, nondistended, normal bowel sounds MUSCULOSKELETAL: Moves all extremities. Strength/ROM intact, No edema, No calf tenderness. NEURO: Alert. Cranial nerves II through XII intact. Grossly intact SKIN: Warm, dry. Normal Color Course Course Emergency Course: Patient felt improved and was discharged home. Vital Signs Vital signs: Vital Signs Temperature 97.4 F L 04/11/24 06:03 Pulse Rate 67 04/11/24 06:03 Respiratory Rate 20 04/11/24 06:03 Blood Pressure 131/84 04/11/24 06:03 Pulse Oximetry 100 04/11/24 06:03 Oxygen Delivery Room Air 04/11/24 06:03 Temperature 97.4 F L 04/11/24 06:03 Pulse Rate 63 04/11/24 10
[2024-04-11 08:14] LABS: Magnesium 1.9 mg/dL (1.6-2.3)
[2024-04-11 08:24] LABS: NT Pro B Type Natriuretic Pept 50 pg/mL (19.9-100)
[2024-04-11] MEDS: SODIUM CHLORIDE 0.9% IV 1,000 ML 999 ML IV CONT (08:31)
[2024-04-11 09:09] LABS: Influenza A QL RT-PCR Negative (Negative); Influenza B QL RT-PCR Negative (Negative); RSV RNA, RT-PCR Negative (Negative); SARS-CoV-2 RNA PCR Negative (Negative)
[2024-04-11 09:45] LABS: Free T4 Free Thyroxine Reflex 1.12 ng/dL (0.78-2.19)
[2024-04-11 11:03] LABS: Total Triiodothyronine (T3) 1.22 NG/ML (0.97-1.69)
== END 2024-04-11 11:05 | disposition home or self-care (01) ==
PROVIDERS: Student in an Organized Health Care Education/Training Program; Emergency Provider Emergency Medicine; PCP Family Medicine
DX: R55 Syncope and collapse (principal); I50.9 Heart failure, unspecified; I11.0 Hypertensive heart disease with heart failure; Z87.01 Personal history of pneumonia (recurrent); Z86.010 Personal history of colon polyps; Z87.891 Personal history of nicotine dependence; Z79.82 Long term (current) use of aspirin; Z79.899 Other long term (current) drug therapy; R00.1 Bradycardia, unspecified
CPT/HCPCS: 36415; 71045; 80053; 83735; 83880; 84439; 84443; 84480; 85025; 87637; 93005; 96360; 96361; 99284; J7030